=== PATIENT | female | born 1990 | race Caucasian/White ===

== ENCOUNTER 2018-01-17 16:15 | Emergency (ER) | payer SELFPAY ==
[2018-01-17 16:27] VITALS: BP 159/114
[2018-01-17] MEDS ORDERED: THIAMINE 100 MG TABLET PO STA (17:25)
[2018-01-17] MEDS ORDERED: FOLIC ACID 1 MG TABLET PO STA (17:25)
[2018-01-17] MEDS ORDERED: LORazepam 0.5 MG TABLET PO STA (17:25)
--- NOTE | 2018-01-17 17:28 | ED Physician Documentation ---
History of Present Illness - Stated complaint Stated Complaint: ETOH WITHDRAWLS - Chief complaint Chief Complaint: General - History obtained from History obtained from: Patient, Family - History of Present Illness Timing: Today (27-year-old woman with long history of alcohol abuse, usually drinks about 1/5 of vodka a day and 3 beers, she starts drinking about 5 PM and then passes out usually around 10 PM. She is a functional alcoholic and maintains a job despite this. She last drink yesterday would like help quitting alcohol. No current health insurance but signed up today.) Review of Systems Constitutional: denies: Fever, Chills Cardiac: denies: Chest pain / pressure, Palpitations Respiratory: denies: Dyspnea, Cough GI: denies: Abdominal Pain PD PAST MEDICAL HISTORY - Past Surgical History Past Surgical History: No - Present Medications Home Medications: Ambulatory Orders Medication Instructions Recorded Confirmed Lorazepam [Ativan] 1 mg PO TID PRN #15 tablet 01/17/18 - Allergies Allergies/Adverse Reactions: Allergies Allergy/AdvReac Type Severity Reaction Status Date / Time No Known Drug Allergies Allergy Verified 01/17/18 16:27 - Social History Does the pt smoke?: No Smoking Status: Never smoker Does the pt drink ETOH?: Yes Does the pt have substance abuse?: No - Immunizations Immunizations are current?: No - POLST Patient has POLST: No PD ED PE NORMAL - Vitals Vital signs reviewed: Yes - General General: Alert and oriented X 3, No acute distress - HEENT HEENT: PERRL, EOMI - Neck Neck: Supple, no meningeal sign, No bony TTP - Neuro Neuro: Alert and oriented X 3, miller wood flour 2-12 intact Eye Opening: Spontaneous Motor: Obeys Commands Verbal: Oriented GCS Score: 15 - Psych Psych: Normal mood, Normal affect, Other (She is not overtly shaky) Results - Vitals Vitals: Vital Signs - 24 hr 01/17/18 16:23 Temperature 37.1 C Heart Rate 108 H Respiratory 18 Rate Blood Pressure 159/114 H O2 Saturation 98 Oxygen O2 Source Room air PD MEDICAL DECISION MAKING - ED course ED course: 27-year-old woman presents with alcohol withdrawal requesting help with detox. We discussed options including seeing in the emergency department for inpatient detox which she declined and would like to try to as an outpatient. Departure - Departure Disposition: 01 Home, Self Care Clinical Impression: Alcohol withdrawal Qualifiers: Complication of substance-induced condition: uncomplicated Qualified Code(s): F10.230 - Alcohol dependence with withdrawal, uncomplicated Condition: Good Record reviewed to determine appropriate education?: Yes Instructions: ED Withdrawal Alcohol Prescriptions: Lorazepam [Ativan] 1 mg PO TID PRN #15 tablet PRN Reason: Anxiety Comments: Try [facility] tomorrow at [phone] to see what options they have for outpatient detox. Return for new or worsening symptoms. Recheck your blood pressure in 1 week with your doctor.
== END 2018-01-17 17:53 | disposition home or self-care (01) ==
LOC: ED 16:15
DX: F10.230 Alcohol dependence with withdrawal, uncomplicated (principal)
CPT/HCPCS: 99283; A9270

== ENCOUNTER 2018-03-12 12:32 | Emergency (ER) | payer SELFPAY ==
[2018-03-12] MEDS ORDERED: LORazepam 0.5 MG TABLET PO STA (16:26)
--- NOTE | 2018-03-12 16:29 | ED Physician Documentation ---
History of Present Illness - Stated complaint Stated Complaint: ETOH - Chief complaint Chief Complaint: General - History obtained from History obtained from: Patient, Family - History of Present Illness Timing: Yesterday (She is trying to quit drinking and had her last drink yesterday. Today she feels shaky and did not sleep well last night. She denies hallucination or seizure activity. No possibility of or other drug use.) Review of Systems Constitutional: reports: Reviewed and negative Cardiac: reports: Reviewed and negative Respiratory: reports: Reviewed and negative PD PAST MEDICAL HISTORY - Past Medical History Cardiovascular: Hypertension - Past Surgical History Past Surgical History: No - Present Medications Home Medications: Ambulatory Orders Medication Instructions Recorded Confirmed Lorazepam [Ativan] 1 mg PO TID PRN #15 tablet 03/12/18 - Allergies Allergies/Adverse Reactions: Allergies Allergy/AdvReac Type Severity Reaction Status Date / Time No Known Drug Allergies Allergy Verified 03/12/18 12:58 - Social History Does the pt smoke?: No Smoking Status: Never smoker Does the pt drink ETOH?: Yes Does the pt have substance abuse?: No - Immunizations Immunizations are current?: No - POLST Patient has POLST: No PD ED PE NORMAL - Vitals Vital signs reviewed: Yes - General General: Alert and oriented X 3, Well developed/nourished, Other (Slightly tremulous) - HEENT HEENT: PERRL, EOMI - Neck Neck: Supple, no meningeal sign, No bony TTP - Neuro Neuro: Alert and oriented X 3, armature winder 2-12 intact - Psych Psych: Normal mood, Normal affect Results - Vitals Vitals: Vital Signs - 24 hr 03/12/18 12:55 Temperature 37 C Heart Rate 108 H Respiratory 15 Rate Blood Pressure 151/110 H O2 Saturation 100 Oxygen O2 Source Room air PD MEDICAL DECISION MAKING - ED course ED course: 27-year-old woman with uncomplicated alcohol withdrawal. She declines to talk to the psych social worker about inpatient treatment. Departure - Departure Disposition: 01 Home, Self Care Clinical Impression: Alcohol withdrawal Qualifiers: Complication of substance-induced condition: uncomplicated Qualified Code(s): F10.230 - Alcohol dependence with withdrawal, uncomplicated Condition: Good Record reviewed to determine appropriate education?: Yes Instructions: ED Withdrawal Alcohol Prescriptions: Lorazepam [Ativan] 1 mg PO TID PRN #15 tablet PRN Reason: Anxiety Comments: Return anytime if you change your mind about consideration for inpatient detoxification or if other symptoms worsen. Your blood pressure was elevated today on check into the emergency department. This does not mean that you have hypertension, it is a common phenomenon to come to the emergency department and have elevated blood pressure. I recommend that you see your primary care physician within the week to have it rechecked when you are feeling better.
[2018-03-12 16:42] VITALS: BP 155/100
[2018-03-12] MEDS: LORazepam 2 MG/ML VIAL IM STA (16:44)
== END 2018-03-12 16:59 | disposition home or self-care (01) ==
LOC: ED 12:32
DX: F10.230 Alcohol dependence with withdrawal, uncomplicated (principal); I10 Essential (primary) hypertension
CPT/HCPCS: 96372; 99282; 99283; J2060

== ENCOUNTER 2018-04-21 17:14 | Emergency (ER) | payer OTHER ==
[2018-04-21 17:20] VITALS: BP 135/93
--- NOTE | 2018-04-21 18:27 | ED Physician Documentation ---
History of Present Illness - Stated complaint Stated Complaint: FACE SWELLING - Chief complaint Chief Complaint: General - History obtained from History obtained from: Patient, Family - History of Present Illness Timing: Yesterday Pain level max: 3 Pain level now: 3 Improved by: Nothing Worsened by: Nothing - Additonal information Additional information: Rash to forehead, started yesterday and worsening welling. Mild redness. States hurts more than itches. No new soaps, detergents, makeup etc. 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 : None HEENT: None Psych: None Musculoskeletal: None Derm: None - Past Surgical History Past Surgical History: No - Present Medications Home Medications: Ambulatory Orders Medication Instructions Recorded Confirmed Clindamycin HCl [Clindamycin 300MG 300 mg PO Q6H #28 capsule 04/21/18 CAP] predniSONE [Prednisone] 20 mg PO DAILY #4 tablet 04/21/18 - Allergies Allergies/Adverse Reactions: Allergies Allergy/AdvReac Type Severity Reaction Status Date / Time No Known Drug Allergies Allergy Verified 04/21/18 17:20 - Social History Does the pt smoke?: No Smoking Status: Never smoker Does the pt drink ETOH?: No Does the pt have substance abuse?: No - Immunizations Immunizations are current?: No Immunizations: TDAP >10years/unknown - POLST Patient has POLST: No PD ED PE NORMAL - Vitals Vital signs reviewed: Yes - General General: Alert and oriented X 3, No acute distress - HEENT HEENT: Moist mucous membranes, Other (2x2m erythematous, warm patch to the forehead. NVI. no induration. ) - Neck Neck: Supple, no meningeal sign - Cardiac Cardiac: RRR - Respiratory Respiratory: No respiratory distress, Clear bilaterally - Derm Derm: Warm and dry - Neuro Neuro: Alert and oriented X 3 Results - Vitals Vitals: Vital Signs - 24 hr 04/21/18 17:19 Temperature 36.3 C L Heart Rate 118 H Respiratory 18 Rate Blood Pressure 135/93 H O2 Saturation 100 Oxygen O2 Source Room air PD MEDICAL DECISION MAKING - ED course Complexity details: considered differential, d/w patient ED course: 27-year-old female with what appears to be cellulitis of the forehead, possible allergic reaction was well? Will place on a low-dose steroid along with antibiotics. She is well-appearing, nontoxic. No drainable abscess. Patient counseled regarding signs and symptoms for which I believe and urgent re- evaluation would be necessary. Patient with good understanding of and agreement to plan and is comfortable going home at this time This document was made in part using voice recognition software. While efforts are made to proofread this document, sound alike and grammatical errors may occur. Departure - Departure Disposition: 01 Home, Self Care Clinical Impression: Cellulitis and abscess of face Condition: Good Instructions: ED Cellulitis Facial Follow-Up: your,doctor in 3 days for wound check. [Other] Prescriptions: Clindamycin HCl [Clindamycin 300MG CAP] 300 mg PO Q6H #28 capsule predniSONE [Prednisone] 20 mg PO DAILY #4 tablet Comments: Take all antibiotics until gone. Return if you worsen. Follow-up with your doctor for wound check in 3 days. Discharge Date/Time: 04/21/18 18:35
== END 2018-04-21 18:35 | disposition home or self-care (01) ==
LOC: ED 17:14
DX: L03.211 Cellulitis of face (principal); L02.01 Cutaneous abscess of face; I10 Essential (primary) hypertension
CPT/HCPCS: 99283

== ENCOUNTER 2018-05-05 17:30 | Outpatient (CLI) | payer OTHER ==
--- NOTE | 2018-05-06 11:43 | XRAY Report ---
Reason: RIB PAIN,RIGHT SIDED Procedure Date: 05/05/2018 Accession Number: [id number] / [id number] Procedure: XR - Chest 2 View X-Ray CPT Code: 23820 FULL RESULT: EXAM: CHEST RADIOGRAPHY EXAM DATE: 05/05/2018 05:42 PM. CLINICAL HISTORY: RIB PAIN,RIGHT SIDED. COMPARISON: None. TECHNIQUE: 2 views. FINDINGS: Lungs/Pleura: No focal opacities evident. No pleural effusion. No pneumothorax. Normal volumes. Mediastinum: Heart and mediastinal contours are unremarkable. Other: Negative bony structures.. IMPRESSION: Normal 2-view chest radiography. RADIA
== END 2018-05-05 17:31 | disposition home or self-care (01) ==
LOC: DI 17:30
PROVIDERS: ATTEND Registered Nurse
DX: R07.81 Pleurodynia (principal)
CPT/HCPCS: 71046

== ENCOUNTER 2018-07-06 13:11 | Outpatient (CLI) | payer OTHER ==
[2018-07-06 18:02] LABS: BASOPHILS # (AUTO) 0.1 10^3/uL (0.0-0.1); BASOPHILS % (AUTO) 0.7 %; EOSINOPHILS # (AUTO) 0.1 10^3/uL (0.0-0.7); EOSINOPHILS % (AUTO) 1.9 %; HGB - HEMOGLOBIN 13.6 g/dL (12.0-16.0); LYMPHOCYTES # (AUTO) 2.2 10^3/uL (1.5-3.5); LYMPHOCYTES % (AUTO) 28.9 %; MEAN CORPUSCULAR HEMOGLOBIN 33.6 pg (27.0-31.0); MEAN CORPUSCULAR VOLUME 101.6 fL (81.0-99.0); MEAN PLATELET VOLUME 10.4 fL (7.9-10.8); MONOCYTES # (AUTO) 0.7 10^3/uL (0.0-1.0); MONOCYTES % (AUTO) 8.9 %; NEUTROPHILS # (AUTO) 4.6 10^3/uL (1.5-6.6); NEUTROPHILS % (AUTO) 59.6 %; PLT - PLATELET COUNT 238 10^3/uL (130-450); RED BLOOD COUNT 4.06 10^6/uL (4.20-5.40); RED CELL DISTRIBUTION WIDTH 13.4 % (12.0-15.0); WHITE BLOOD COUNT 7.7 x10^3/uL (4.8-10.8)
[2018-07-06 18:32] LABS: ALBUMIN 4.3 g/dL (3.2-5.5); ALBUMIN/GLOBULIN RATIO 1.2 (1.0-2.2); BILIRUBIN,TOTAL 0.5 mg/dL (0.2-1.0); CALCIUM 9.5 mg/dL (8.5-10.3); CREATININE 0.5 mg/dL (0.4-1.0); TOTAL PROTEIN 7.9 g/dL (6.7-8.2)
== END 2018-07-06 13:12 | disposition home or self-care (01) ==
LOC: LAB.F 13:11
PROVIDERS: ATTEND Nurse Practitioner
DX: I10 Essential (primary) hypertension (principal)
CPT/HCPCS: 36415; 80053; 85025

== ENCOUNTER 2018-07-19 14:57 | Outpatient (CLI) | payer OTHER ==
[2018-07-19 18:16] LABS: ABSOLUTE RETICS # AUTO 0.087 10^6/uL (0.020-0.110); RED BLOOD COUNT 3.82 10^6/uL (4.20-5.40)
[2018-07-19 19:07] LABS: FOLATE 21.89 ng/mL (5.90 - >24.8)
== END 2018-07-19 23:59 | disposition home or self-care (01) ==
LOC: LAB.S 14:57
PROVIDERS: ATTEND Nurse Practitioner
DX: D64.9 Anemia, unspecified (principal)
CPT/HCPCS: 36415; 82607; 82746; 85044

== ENCOUNTER 2018-08-31 13:55 | Emergency (ER) | payer OTHER ==
[2018-08-31 14:16] VITALS: BP 152/107
[2018-08-31] MEDS ORDERED: chlordiazePOXIDE 25 MG CAPSULE PO STA (14:54)
[2018-08-31] MEDS ORDERED: GABAPENTIN 100 MG CAPSULE PO STA (14:56)
--- NOTE | 2018-08-31 15:21 | ED Physician Documentation ---
History of Present Illness - Stated complaint Stated Complaint: ETOH - Chief complaint Chief Complaint: MHE - History obtained from History obtained from: Patient, Family - History of Present Illness Timing: Today Severity Comments: Mild tremors, feeling a little anxious, denies pain Radiates to: mild tremors, anxiety Improved by: nothing Worsened by: nothing Associated symptoms: denies hallucinations, delusions, seizures. Denies other drug use. - Treatment prior to arrival Treatment prior to arrival: none - Additonal information Additional information: 28 y/o F with hx of chronic alcohol abuse states she is trying to quit, her last drink was about 10 hours ago. She denies pain. She feels a little shaky Review of Systems Ten Systems: 10 systems reviewed and negative Constitutional: denies: Fever Respiratory: denies: Dyspnea GI: denies: Abdominal Pain, Nausea, Vomiting Neurologic: reports: Other (tremors). denies: Syncope, Seizure, Confused, Altered mental status Psychiatric: reports: Anxiety. 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 : None HEENT: None Psych: None Musculoskeletal: None Derm: None - Past Surgical History Past Surgical History: No - Present Medications Home Medications: Ambulatory Orders Medication Instructions Recorded Confirmed RX: hydroCHLOROthiazide 25 mg PO 08/31/18 [Hydrochlorothiazide] chlordiazePOXIDE [Librium] 50 mg PO Q8HR 7 Days #40 capsule 08/31/18 - Allergies Allergies/Adverse Reactions: Allergies Allergy/AdvReac Type Severity Reaction Status Date / Time No Known Drug Allergies Allergy Verified 08/31/18 14:15 - Social History Does the pt smoke?: No Smoking Status: Never smoker Does the pt drink ETOH?: No Does the pt have substance abuse?: No - Immunizations Immunizations are current?: No Immunizations: TDAP >10years/unknown - POLST Patient has POLST: No PD ED PE NORMAL - Vitals Vital signs reviewed: Yes - General General: Alert and oriented X 3, No acute distress, Well developed/nourished, Other (mildly tremulous) - HEENT HEENT: Atraumatic, PERRL, EOMI - Cardiac Cardiac: No murmur, No gallop, No rub, Other (mild tachycardia, regular rate) - Respiratory Respiratory: No respiratory distress - Abdomen Abdomen: Soft, Non tender, Non distended - Female Female : Deferred - Rectal Rectal: Deferred - Derm Derm: Normal color, Warm and dry, No rash - Extremities Extremities: No deformity, No edema - Neuro Neuro: Alert and oriented X 3 Eye Opening: Spontaneous Motor: Obeys Commands Verbal: Oriented GCS Score: 15 - Psych Psych: Normal mood, Normal affect PD ED PE EXPANDED - Neuro Neuro: Other (mild tremor, no asterixis) Results - Vitals Vitals: Vital Signs - 24 hr 08/31/18 14:13 Temperature 36.8 C Heart Rate 115 H Respiratory 16 Rate Blood Pressure 152/107 H O2 Saturation 99 Oxygen O2 Source Room air PD MEDICAL DECISION MAKING - ED course Complexity details: considered differential, d/w patient, d/w family ED course: Alcohol withdrawal, alcohol abuse, anxiety 28 y/o F with hx of alcohol abuse currently appears to be in mild withdrawal - tremulous but not altered, no seizure activity. Mild tachycardia, pt's CIWA is <10 thus feel pt is stable for outpt management. Will give trial of gabapentin and librium. Pt to f/u with PCP for recheck. Given return precaution if worsening symptoms or seizure activity. Departure - Departure Disposition: 01 Home, Self Care Clinical Impression: Alcohol withdrawal Condition: Stable Record reviewed to determine appropriate education?: Yes Instructions: ED Withdrawal Alcohol Follow-Up: Talita Alvarez DNP [Primary Care Provider] - Within 3 Days Prescriptions: chlordiazePOXIDE [Librium] 50 mg PO Q8HR 7 Days #40 capsule
== END 2018-08-31 15:54 | disposition home or self-care (01) ==
LOC: ED 13:55
DX: F10.230 Alcohol dependence with withdrawal, uncomplicated (principal); F41.9 Anxiety disorder, unspecified; I10 Essential (primary) hypertension
CPT/HCPCS: 99283; 99284; A9270

== ENCOUNTER 2019-02-13 18:43 | Emergency (ER) | payer OTHER ==
[2019-02-13] MEDS ORDERED: chlordiazePOXIDE 25 MG CAPSULE PO STA (19:42)
[2019-02-13] MEDS ORDERED: ONDANSETRON ODT 4 MG TABLET TL STA (19:42)
--- NOTE | 2019-02-13 19:47 | ED Physician Documentation ---
PD HPI ABD PAIN - Stated complaint Stated Complaint: NAUSEA/LUMP ON L BREAST - Chief complaint Chief Complaint: Abd Pain - History obtained from History obtained from: Patient (28-year-old alcoholic presents for multiple areas of bruising and a concern about a breast lump as well as nausea. On a normal day she starts drinking around 7 PM, finishes drinking around midnight. During that time will drink a pint of vodka, few beers and a few smaller bottles of vodka as well. She is noticed for the last few weeks that she has a lot of bruises all over. They look traumatic. She does not recollect any trauma but admits that she could have had trauma when she was blacked out. She denies any pain. Review of previous records show normal renal function, liver function, platelets. She also has a breast lump that slightly painful, left upper outer breast. She feels is unlikely but not impossible. She is nauseous and withdrawing a little bit. 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 HEENT: None Psych: None Musculoskeletal: None Derm: None - Past Surgical History Past Surgical History: No - Present Medications Home Medications: Ambulatory Orders Medication Instructions Recorded Confirmed Gabapentin 400 mg PO TID #30 capsule 08/31/18 chlordiazePOXIDE [Librium] 50 mg PO Q8HR 7 Days #40 capsule 08/31/18 hydroCHLOROthiazide 25 mg PO 08/31/18 [Hydrochlorothiazide] chlordiazePOXIDE [Librium] 1 - 2 tab PO Q8H PRN #15 capsule 02/13/19 - Allergies Allergies/Adverse Reactions: Allergies Allergy/AdvReac Type Severity Reaction Status Date / Time No Known Drug Allergies Allergy Verified 08/31/18 14:15 - Social History Does the pt smoke?: No Smoking Status: Never smoker Does the pt drink ETOH?: No Does the pt have substance abuse?: No - Immunizations Immunizations are current?: No Immunizations: TDAP >10years/unknown - POLST Patient has POLST: No PD ED PE NORMAL - Vitals Vital signs reviewed: Yes - General General: Alert and oriented X 3, No acute distress - HEENT HEENT: PERRL, EOMI - Neck Neck: Supple, no meningeal sign, No bony TTP - Cardiac Cardiac: RRR, No murmur - Respiratory Respiratory: No respiratory distress, Clear bilaterally, Other (Breast exam was done with Sima william nurse, she has a small lump left upper outer breast most consistent with fibroglandular tissue. She was reassured that this is unlikely to be malignant, but advised primary care follow-up.) - Abdomen Abdomen: Non tender - Derm Derm: Other (She is multiple bruises in various states of healing, right flank, both elbows. They are in spots that are kind of typical for trauma) - Extremities Extremities: No edema, No calf tenderness / cord - Neuro Neuro: Alert and oriented X 3, Normal speech Results - Vitals Vitals: Vital Signs - 24 hr 02/13/19 02/13/19 18:49 21:18 Temperature 36.8 C 37 C Heart Rate 84 116 H Respiratory 18 16 Rate Blood Pressure 145/101 H 143/98 H O2 Saturation 100 97 Oxygen O2 Source Room air - Labs Labs: Laboratory Tests 02/13/19 02/13/19 02/13/19 20:03 20:03 20:03 WBC 6.6 RBC 3.92 L Hgb 14.6 Hct 40.0 MCV 102.0 H MCH 37.2 H MCHC 36.5 H RDW 13.3 Plt Count 193 MPV 10.2 Neut # (Auto) 4.1 Lymph # (Auto) 2.1 Kershaw # (Auto) 0.4 Eos # (Auto) 0.0 Baso # (Auto) 0.1 Absolute Nucleated RBC 0.00 Band Neuts % (Manual) Not Reportable Abnorm Lymph % (Manual) Not Reportable Nucleated RBC % 0.0 Neutrophils # (Manual) Not Reportable Lymphocytes # (Manual) Not Reportable Monocytes # (Manual) Not Reportable Eosinophils # (Manual) Not Reportable Basophils # (Manual) Not Reportable Differential Comment MANUAL=AUTO DIFF Manual Slide Review Indicated WBC Morphology NORMAL APPEARANCE Platelet Estimate NORMAL (130-450,000) Platelet Morphology NORMAL APPEARANCE RBC Morph Micro Appear NORMAL APPEARANCE Whole Blood INR Sodium 129 L Potassium 3.1 L Chloride 90 L Carbon Dioxide 28 Anion Gap 11.0 BUN 16 Creatinine 0.5 Estimated GFR (MDRD) 146 Glucose 138 H Calcium 8.0 L Total Bilirubin 0.5 AST 154 H ALT 37 Alkaline Phosphatase 59 Total Protein 6.1 L Albumin 3.4 Globulin 2.7 Albumin/Globulin Ratio 1.3 Lipase 184 H Serum HCG, Qual NEGATIVE 02/13/19 20:15 WBC RBC Hgb Hct MCV MCH MCHC RDW Plt Count MPV Neut # (Auto) Lymph # (Auto) [place]ershaw # (Auto) Eos # (Auto) Baso # (Auto) Absolute Nucleated RBC Band Neuts % (Manual) Abnorm Lymph % (Manual) Nucleated RBC % Neutrophils # (Manual) Lymphocytes # (Manual) Monocytes # (Manual) Eosinophils # (Manual) Basophils # (Manual) Differential Comment Manual Slide Review WBC Morphology Platelet Estimate Platelet Morphology RBC Morph Micro Appear Whole Blood INR 1.0 Sodium Potassium Chloride Carbon Dioxide Anion Gap BUN Creatinine Estimated GFR (MDRD) Glucose Calcium Total Bilirubin AST ALT Alkaline Phosphatase Total Protein Albumin Globulin Albumin/Globulin Ratio Lipase Serum HCG, Qual PD MEDICAL DECISION MAKING - ED course ED course: 28-year-old woman with worry for clotting abnormalities in the setting of history of alcohol abuse. Her clotting factors are normal. She is lipemic and this was discussed with the patient. Also breast lump, also primary care follow-up was advised but seems most consistent with fibroglandular tissue. She has had that before. Departure - Departure Disposition: 01 Home, Self Care Clinical Impression: Alcohol withdrawal Qualifiers: Complication of substance-induced condition: uncomplicated Qualified Code(s): F10.230 - Alcohol dependence with withdrawal, uncomplicated Condition: Good Record reviewed to determine appropriate education?: Yes Instructions: ED Withdrawal Alcohol Prescriptions: chlordiazePOXIDE [Librium] 1 - 2 tab PO Q8H PRN #15 capsule PRN Reason: Alcohol Withdrawal Comments: Your clotting factors are normal. You do have lipemia, this is high fat in the blood. It is not relevant to your current complaints, but she need to follow-up with your primary care physician for this. Return for new worsening symptoms. Avoid alcohol.
[2019-02-13 20:09] LABS: BASOPHILS # (AUTO) 0.1 10^3/uL (0.0-0.1); BASOPHILS % (AUTO) 0.9 %; EOSINOPHILS % (AUTO) 0.3 %; HGB - HEMOGLOBIN 14.6 g/dL (12.0-16.0); LYMPHOCYTES # (AUTO) 2.1 10^3/uL (1.5-3.5); MEAN CORPUSCULAR HEMOGLOBIN 37.2 pg (27.0-31.0); MEAN CORPUSCULAR HGB CONC 36.5 g/dL (32.0-36.0); MEAN PLATELET VOLUME 10.2 fL (7.9-10.8); MONOCYTES # (AUTO) 0.4 10^3/uL (0.0-1.0); MONOCYTES % (AUTO) 6.1 %; NEUTROPHILS # (AUTO) 4.1 10^3/uL (1.5-6.6); NEUTROPHILS % (AUTO) 61.4 %; PLT - PLATELET COUNT 193 10^3/uL (130-450); RED BLOOD COUNT 3.92 10^6/uL (4.20-5.40); RED CELL DISTRIBUTION WIDTH 13.3 % (12.0-15.0); WHITE BLOOD COUNT 6.6 x10^3/uL (4.8-10.8)
[2019-02-13 20:38] LABS: HCG,QUALITATIVE BLOOD NEGATIVE
[2019-02-13 21:02] LABS: PLATELET MORPHOLOGY NORMAL APPEARANCE (NORMAL); RBC MORPHOLOGY (MULTIPLE) NORMAL APPEARANCE (NORMAL)
[2019-02-13 21:03] LABS: DIFFERENTIAL COMMENT MANUAL=AUTO DIFF; PLATELET ESTIMATE, MANUAL NORMAL (130-450,000) (NORMAL)
[2019-02-13 21:08] LABS: ALBUMIN 3.4 g/dL (3.2-5.5); ALBUMIN/GLOBULIN RATIO 1.3 (1.0-2.2); BILIRUBIN,TOTAL 0.5 mg/dL (0.2-1.0); CREATININE 0.5 mg/dL (0.4-1.0); TOTAL PROTEIN 6.1 g/dL (6.7-8.2)
[2019-02-13 21:19] VITALS: BP 143/98
== END 2019-02-13 21:29 | disposition home or self-care (01) ==
LOC: ED 18:43
DX: F10.230 Alcohol dependence with withdrawal, uncomplicated (principal); E78.5 Hyperlipidemia, unspecified; N63.21 Unspecified lump in the left breast, upper outer quadrant; S30.1XXA Contusion of abdominal wall, initial encounter; S50.02XA Contusion of left elbow, initial encounter; S50.01XA Contusion of right elbow, initial encounter; X58.XXXA Exposure to other specified factors, initial encounter; I10 Essential (primary) hypertension
CPT/HCPCS: 36415; 80053; 83690; 84703; 85025; 85610; 99283; 99284; A9270; Q0162

== ENCOUNTER 2019-02-18 09:06 | Outpatient (CLI) | payer OTHER ==
[2019-02-18 17:13] LABS: BASOPHILS % (AUTO) 1.3 %; EOSINOPHILS % (AUTO) 2.6 %; HGB - HEMOGLOBIN 12.4 g/dL (12.0-16.0); MEAN CORPUSCULAR HEMOGLOBIN 36.2 pg (27.0-31.0); MEAN CORPUSCULAR HGB CONC 32.3 g/dL (32.0-36.0); MEAN PLATELET VOLUME 10.7 fL (7.9-10.8); MONOCYTES % (AUTO) 10.4 %; NEUTROPHILS % (AUTO) 54.6 %; PLT - PLATELET COUNT 234 10^3/uL (130-450); RED BLOOD COUNT 3.43 10^6/uL (4.20-5.40); RED CELL DISTRIBUTION WIDTH 14.3 % (12.0-15.0); WHITE BLOOD COUNT 6.2 x10^3/uL (4.8-10.8)
[2019-02-18 17:46] LABS: ABNORMAL LYMPHS % (MANUAL) 4 %; BAND NEUTROPHILS % (MANUAL) 2 %; EOSINOPHILS # (MANUAL) 0.1 10^3/uL (0-0.7); LYMPHOCYTES # (MANUAL) 2.6 10^3/uL (1.5-3.5); LYMPHOCYTES % (MANUAL) 35 %; MONOCYTES # (MANUAL) 0.3 10^3/uL (0.0-1.0)
[2019-02-18 17:54] LABS: DIFFERENTIAL COMMENT MANUAL DIFFERENTIAL; PLATELET ESTIMATE, MANUAL NORMAL (130-450,000) (NORMAL); PLATELET MORPHOLOGY NORMAL APPEARANCE (NORMAL)
[2019-02-18 17:55] LABS: ALBUMIN 3.4 g/dL (3.2-5.5); ALBUMIN/GLOBULIN RATIO 0.8 (1.0-2.2); BILIRUBIN,TOTAL 0.9 mg/dL (0.2-1.0); CALCIUM 9.2 mg/dL (8.5-10.3); CREATININE 0.6 mg/dL (0.4-1.0); TOTAL PROTEIN 7.5 g/dL (6.7-8.2)
== END 2019-02-18 09:07 | disposition home or self-care (01) ==
LOC: LAB.S 09:06
PROVIDERS: ATTEND Physician Assistant Medical
DX: F10.10 Alcohol abuse, uncomplicated (principal); I10 Essential (primary) hypertension; D64.9 Anemia, unspecified
CPT/HCPCS: 36415; 80053; 85025

== ENCOUNTER 2019-05-10 14:27 | Outpatient (CLI) | payer OTHER ==
[2019-05-10 17:44] LABS: ALBUMIN 4.1 g/dL (3.2-5.5); ALBUMIN/GLOBULIN RATIO 1.1 (1.0-2.2); BILIRUBIN,TOTAL 0.5 mg/dL (0.2-1.0); CALCIUM 8.9 mg/dL (8.5-10.3); CREATININE 0.5 mg/dL (0.4-1.0); TOTAL PROTEIN 7.7 g/dL (6.7-8.2)
== END 2019-05-10 14:28 | disposition home or self-care (01) ==
LOC: LAB.S 14:27
PROVIDERS: ATTEND Physician Assistant Medical
DX: E87.6 Hypokalemia (principal); I10 Essential (primary) hypertension
CPT/HCPCS: 36415; 80053

== ENCOUNTER 2020-02-15 09:25 | Emergency (ER) | payer MEDICAID, OTHER ==
[2020-02-15] MEDS ORDERED: FOLIC ACID INJ 1 MG, THIAMINE INJ 100 MG, MAGNESIUM SULFATE 2 GM, MULTIVITAMIN 10 ML in... IV STA ×5 (09:48)
[2020-02-15] MEDS ORDERED: MAG HYDROX/AL HYDROX/SIMETH 30 ML UDC PO STA (09:48)
[2020-02-15] MEDS ORDERED: LIDOCAINE VISCOUS 2% 15 ML UDC MM STA (09:48)
--- NOTE | 2020-02-15 09:51 | ED Physician Documentation ---
PD HPI ABD PAIN - Stated complaint Stated Complaint: N/V ABDOMINAL PX - Chief complaint Chief Complaint: Abd Pain - History obtained from History obtained from: Patient - History of Present Illness Timing - onset: Yesterday Timing - duration: Days (1) Timing - details: Gradual onset, Still present Quality: Sharp, Pain Location: Epigastric Radiation: Chest Improved by: Other (nothing) Worsened by: Eating, Palpation Associated symptoms: Nausea, Vomiting Similar symptoms before: No diagnosis Recently seen: Not recently seen - Additional information Additional information: Previous well 29-year-old alcoholic female has developed epigastric pain beginning yesterday. She has enough pain that she was not able to eat or drink last night and she comes into the emergency department this morning with epigastric pain. She has had pain much less than this and similar to this that has not lasted. She has pain now and it is persistent. She denies any shortness of breath associated with this she has had some nausea she has not had diarrhea or constipation. She notes that there is no other pain in her abdomen other than right in the middle. Review of Systems Constitutional: denies: Fever Eyes: denies: Decreased vision Ears: denies: Ear pain Nose: denies: Congestion Throat: denies: Sore throat Cardiac: denies: Chest pain / pressure, Palpitations Respiratory: denies: Dyspnea, Cough GI: reports: Abdominal Pain, Nausea, Vomiting : denies: Dysuria, Frequency Skin: denies: Rash Musculoskeletal: denies: Neck pain, Back pain, Extremity pain Neurologic: denies: Generalized weakness, Focal weakness, Numbness PD PAST MEDICAL HISTORY - Past Medical History Cardiovascular: Hypertension Respiratory: None Neuro: None Endocrine/Autoimmune: None GI: None 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 : None HEENT: None Psych: None Musculoskeletal: None Derm: None - Past Surgical History Past Surgical History: No - Present Medications Home Medications: Ambulatory Orders Medication Instructions Recorded Confirmed Buspirone HCl 15 mg PO DAILY 02/15/20 02/15/20 Escitalopram Oxalate [Lexapro] 20 mg PO DAILY 02/15/20 02/15/20 Losartan [Cozaar] 50 mg PO DAILY 02/15/20 02/15/20 Sucralfate [Carafate] 1 gm PO ACHS #60 tablet 02/15/20 chlordiazePOXIDE [Librium] 25 mg PO Q6H PRN #20 capsule 02/15/20 - Allergies Allergies/Adverse Reactions: Allergies Allergy/AdvReac Type Severity Reaction Status Date / Time No Known Drug Allergies Allergy Verified 02/15/20 09:33 - Social History Does the pt smoke?: No Smoking Status: Never smoker Does the pt drink ETOH?: No Does the pt have substance abuse?: No - Immunizations Immunizations are current?: No Immunizations: TDAP >10years/unknown - POLST Patient has POLST: No PD ED PE NORMAL - Vitals Vital signs reviewed: Yes (Hypertensive) - General General: Alert and oriented X 3, No acute distress, Well developed/nourished - HEENT HEENT: Atraumatic, PERRL, EOMI - Neck Neck: Supple, no meningeal sign, No bony TTP - Cardiac Cardiac: RRR, No murmur - Respiratory Respiratory: No respiratory distress, Clear bilaterally - Abdomen Abdomen: Normal bowel sounds, Soft, Non distended, No organomegaly, Other (Specific epigastric tenderness to palpation without left or right upper quadrant or left or right lower quadrant pain or tenderness.) - Back Back: No CVA TTP, No spinal TTP - Derm Derm: Normal color, Warm and dry, No rash - Extremities Extremities: No deformity, No edema - Neuro Neuro: Alert and oriented X 3, 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, No motor deficit, No sensory deficit, Normal speech Eye Opening: Spontaneous Motor: Obeys Commands Verbal: Oriented GCS Score: 15 - Psych Psych: Normal mood, Normal affect Results - Vitals Vitals: Vital Signs - 24 hr 02/15/20 02/15/20 02/15/20 09:30 09:57 10:19 Temperature 37 C 37 C Heart Rate 90 73 79 Respiratory 18 16 16 Rate Blood Pressure 149/95 H 146/92 H 134/93 H O2 Saturation 99 99 100 02/15/20 02/15/20 10:32 11:07 Temperature 37 C Heart Rate 84 79 Respiratory 18 16 Rate Blood Pressure 134/93 H 135/90 H O2 Saturation 100 99 Oxygen O2 Source Room air - Labs Labs: Laboratory Tests 02/15/20 02/15/20 02/15/20 09:35 09:53 09:53 WBC 8.2 RBC 4.08 L Hgb 14.0 Hct 40.9 MCV 100.2 H MCH 34.3 H MCHC 34.2 RDW 13.3 Plt Count 198 MPV 10.0 Neut # (Auto) 6.5 Lymph # (Auto) 1.0 L [place] # (Auto) 0.7 Eos # (Auto) 0.0 Baso # (Auto) 0.0 Absolute Nucleated RBC 0.00 Nucleated RBC % 0.0 Sodium 134 L Potassium 2.9 L Chloride 92 L Carbon Dioxide 28 Anion Gap 14.0 H BUN 5 L Creatinine 0.6 Estimated GFR (MDRD) 117 Glucose 163 H Lactic Acid Calcium 9.5 Total Bilirubin 0.9 AST 313 H ALT 212 H Alkaline Phosphatase 48 Total Protein 8.0 Albumin 4.3 Globulin 3.7 Albumin/Globulin Ratio 1.2 Lipase 1656 H Urine Color DARK YELLOW Urine Clarity CLEAR Urine pH 7.0 Ur Specific [place] 1.020 Urine Protein 30 H Urine Glucose (UA) NEGATIVE Urine Ketones 15 H Urine Occult Blood NEGATIVE Urine Nitrite NEGATIVE Urine Bilirubin NEGATIVE Urine Urobilinogen 0.2 (NORMAL) Ur Leukocyte Esterase TRACE H Urine RBC None Seen Urine WBC 4-5 Ur Squamous Epith Cells MOD Squamous H Urine Bacteria Rare Urine Mucus Moderate Strands Ur Microscopic Review INDICATED Urine Culture Comments NOT INDICATED Urine HCG, Qual NEGATIVE Urine Opiates Screen NEGATIVE Ur Oxycodone Screen NEGATIVE Urine Methadone Screen NEGATIVE Ur Propoxyphene Screen NEGATIVE Ur Barbiturates Screen NEGATIVE Ur Tricyclics Screen NEGATIVE Ur Phencyclidine Scrn NEGATIVE Ur Amphetamine Screen NEGATIVE U Methamphetamines Scrn NEGATIVE U Benzodiazepines Scrn NEGATIVE Urine Cocaine Screen NEGATIVE U Cannabinoids Screen NEGATIVE Ethyl Alcohol 7.3 02/15/20 09:53 WBC RBC Hgb Hct MCV MCH MCHC RDW Plt Count MPV Neut # (Auto) Lymph # (Auto) [place] # (Auto) Eos # (Auto) Baso # (Auto) Absolute Nucleated RBC Nucleated RBC % Sodium Potassium Chloride Carbon Dioxide Anion Gap BUN Creatinine Estimated GFR (MDRD) Glucose Lactic Acid 1.8 Calcium Total Bilirubin AST ALT Alkaline Phosphatase Total Protein Albumin Globulin Albumin/Globulin Ratio Lipase Urine Color Urine Clarity Urine pH Ur Specific Ridge Urine Protein Urine Glucose (UA) Urine Ketones Urine Occult Blood Urine Nitrite Urine Bilirubin Urine Urobilinogen Ur Leukocyte Esterase Urine RBC Urine WBC Ur Squamous Epith Cells Urine Bacteria Urine Mucus Ur Microscopic Review Urine Culture Comments Urine HCG, Qual Urine Opiates Screen Ur Oxycodone Screen Urine Methadone Screen Ur Propoxyphene Screen Ur Barbiturates Screen Ur Tricyclics Screen Ur Phencyclidine Scrn Ur Amphetamine Screen U Methamphetamines Scrn U Benzodiazepines Scrn Urine Cocaine Screen U Cannabinoids Screen Ethyl Alcohol PD MEDICAL DECISION MAKING - ED course Complexity details: reviewed old records, reviewed results, re-evaluated patient, considered differential, d/w patient ED course: 29-year-old alcoholic female presents with acute nausea vomiting epigastric pain she has improvement with use of GI cocktail and she is administered Protonix and Carafate. Her lipase is markedly elevated consistent with acute pancreatitis as well as 2 of her liver functions consistent with alcoholic liver disease. She is given a prescription for Librium for withdrawal symptoms as well as a prescription for Carafate and instructions on gastritis versus peptic ulcer and pancreatitis. She is instructed to not eat food for the next 3 days and she is given a note for work for 5 days.We did discuss admission to the hospital for pancreatitis and she appears well enough to attempt outpatient management. Departure - Departure Disposition: 01 Home, Self Care Clinical Impression: Gastritis Qualifiers: Gastritis type: alcoholic Chronicity: acute Gastritis bleeding: without bleeding Qualified Code(s): K29.20 - Alcoholic gastritis without bleeding Pancreatitis Qualifiers: Chronicity: acute Pancreatitis type: alcohol induced Acute pancreatitis complication: unspecified Qualified Code(s): K85.20 - Alcohol induced acute pancreatitis without necrosis or infection Condition: Stable Instructions: ED Pancreatitis, ED PUD Vs Gastritis Follow-Up: [facility] [Provider Group] Prescriptions: Sucralfate [Carafate] 1 gm PO ACHS #60 tablet chlordiazePOXIDE [Librium] 25 mg PO Q6H PRN #20 capsule PRN Reason: withdrawal symptoms Forms: Activity restrictions
[2020-02-15 09:58] LABS: BASOPHILS % (AUTO) 0.4 %; LYMPHOCYTES % (AUTO) 11.6 %; MEAN CORPUSCULAR HEMOGLOBIN 34.3 pg (27.0-31.0); MEAN CORPUSCULAR HGB CONC 34.2 g/dL (32.0-36.0); MEAN CORPUSCULAR VOLUME 100.2 fL (81.0-99.0); MONOCYTES # (AUTO) 0.7 10^3/uL (0.0-1.0); MONOCYTES % (AUTO) 8.7 %; NEUTROPHILS # (AUTO) 6.5 10^3/uL (1.5-6.6); NEUTROPHILS % (AUTO) 78.8 %; PLT - PLATELET COUNT 198 10^3/uL (130-450); RED BLOOD COUNT 4.08 10^6/uL (4.20-5.40); RED CELL DISTRIBUTION WIDTH 13.3 % (12.0-15.0); WHITE BLOOD COUNT 8.2 x10^3/uL (4.8-10.8)
[2020-02-15 09:59] LABS: MUDS CUTOFF CONCENTRATIONS CUTOFF CONC BELOW:
[2020-02-15 10:05] LABS: GLUCOSE, URINE (UA) NEGATIVE (NEGATIVE); KETONES,URINE (UA) 15 mg/dL (NEGATIVE); LEUKOCYTE ESTERASE, URINE TRACE (NEGATIVE); NITRITE,URINE NEGATIVE (NEGATIVE); OCCULT BLOOD,URINE NEGATIVE (NEGATIVE); PROTEIN,URINE 30 mg/dL (NEGATIVE); UROBILINOGEN,URINE 0.2 (NORMAL) E.U./dL (NORMAL)
[2020-02-15] MEDS ORDERED: PANTOPRAZOLE 40 MG VIAL IVP STA (10:08)
[2020-02-15] MEDS ORDERED: SUCRALFATE 1 GM/10 ML UDC PO STA (10:08)
[2020-02-15 10:10] LABS: CLARITY,URINE CLEAR (CLEAR)
[2020-02-15 10:11] LABS: HCG UR QUAL NEGATIVE
[2020-02-15 10:14] LABS: BILIRUBIN,URINE NEGATIVE (NEGATIVE); ICTOTEST,URINE NEGATIVE
[2020-02-15 10:18] LABS: AMPHETAMINE SCREEN,URINE NEGATIVE (NEGATIVE); BACTERIA,URINE Rare /HPF (None Seen); BENZODIAZEPINES SCREEN, URINE NEGATIVE (NEGATIVE); COCAINE SCREEN URINE NEGATIVE (NEGATIVE); METHADONE SCREEN, URINE NEGATIVE (NEGATIVE); METHAMPHETAMINES SCREEN, URINE NEGATIVE (NEGATIVE); MUCUS,URINE Moderate Strands; OPIATE SCREEN, URINE NEGATIVE (NEGATIVE); OXYCODONE SCREEN, URINE NEGATIVE (NEGATIVE); PROPOXYPHENE SCREEN, URINE NEGATIVE (NEGATIVE); RBC,URINE None Seen /HPF (0-5); SQUAMOUS EPITHELIAL CELL,UR MOD Squamous (<= Few); TRICYCLIC ANTIDEPRESSANT,URINE NEGATIVE (NEGATIVE)
[2020-02-15 10:42] LABS: ALBUMIN 4.3 g/dL (3.2-5.5); ALBUMIN/GLOBULIN RATIO 1.2 (1.0-2.2); BILIRUBIN,TOTAL 0.9 mg/dL (0.2-1.0); CALCIUM 9.5 mg/dL (8.5-10.3); CREATININE 0.6 mg/dL (0.4-1.0)
[2020-02-15] MEDS ORDERED: POTASSIUM CHLORIDE 20 MEQ TABLET PO STA (11:34)
[2020-02-15 11:40] VITALS: BP 141/92
== END 2020-02-15 11:47 | disposition home or self-care (01) ==
LOC: ED 09:25
DX: K29.20 Alcoholic gastritis without bleeding (principal); K85.20 Alcohol induced acute pancreatitis without necrosis or infection; K70.9 Alcoholic liver disease, unspecified; F10.20 Alcohol dependence, uncomplicated; I10 Essential (primary) hypertension
CPT/HCPCS: 36415; 80053; 80306; 80320; 81001; 81025; 83605; 83690; 85025; 96365; 96375; 99284; A9270; J3411; 81003; 87086

== ENCOUNTER 2020-10-03 16:27 | Outpatient (CLI) | payer MEDICAID ==
[2020-10-03 20:06] LABS: BASOPHILS # (AUTO) 0.3 10^3/uL (0.0-0.1); BASOPHILS % (AUTO) 1.5 %; EOSINOPHILS # (AUTO) 0.6 10^3/uL (0.0-0.7); EOSINOPHILS % (AUTO) 3.4 %; HCT - HEMATOCRIT 33.5 % (37.0-47.0); HGB - HEMOGLOBIN 10.5 g/dL (12.0-16.0); LYMPHOCYTES # (AUTO) 2.2 10^3/uL (1.5-3.5); MEAN CORPUSCULAR HEMOGLOBIN 37.5 pg (27.0-31.0); MEAN CORPUSCULAR HGB CONC 31.3 g/dL (32.0-36.0); MEAN CORPUSCULAR VOLUME 119.6 fL (81.0-99.0); MEAN PLATELET VOLUME 11.5 fL (7.9-10.8); MONOCYTES # (AUTO) 1.3 10^3/uL (0.0-1.0); MONOCYTES % (AUTO) 7.6 %; NEUTROPHILS # (AUTO) 12.3 10^3/uL (1.5-6.6); NEUTROPHILS % (AUTO) 72.8 %; PLT - PLATELET COUNT 433 10^3/uL (130-450); RED CELL DISTRIBUTION WIDTH 15.5 % (12.0-15.0); WHITE BLOOD COUNT 16.9 x10^3/uL (4.8-10.8)
[2020-10-03 20:12] LABS: SLIDE REVIEW? Indicated
[2020-10-03 20:13] LABS: PARTIAL THROMBOPLASTIN TIME 30.9 secs (24.9-33.3)
[2020-10-03 20:17] LABS: ALBUMIN 4.2 g/dL (3.2-5.5); ALBUMIN/GLOBULIN RATIO 0.6 (1.0-2.2); BILIRUBIN,TOTAL 2.2 mg/dL (0.2-1.0); CALCIUM 9.9 mg/dL (8.5-10.3); CREATININE 0.9 mg/dL (0.4-1.0); POTASSIUM 4.5 mmol/L (3.5-5.0); TOTAL PROTEIN 11.2 g/dL (6.7-8.2)
[2020-10-03 20:33] LABS: INR 1.5 (0.8-1.2); PT - PROTHROMBIN TIME 16.4 secs (9.9-12.6)
[2020-10-03 20:36] LABS: PLATELET ESTIMATE, MANUAL NORMAL (130-450,000) (NORMAL); PLATELET MORPHOLOGY NORMAL APPEARANCE (NORMAL)
[2020-10-03 20:37] LABS: WBC MORPHOLOGY (MULTIPLE) NORMAL APPEARANCE (NORMAL)
== END 2020-10-03 16:28 | disposition home or self-care (01) ==
LOC: LAB.S 16:27
PROVIDERS: ATTEND Internal Medicine
DX: K70.30 Alcoholic cirrhosis of liver without ascites (principal)
CPT/HCPCS: 36415; 80053; 85025; 85610; 85730

== ENCOUNTER 2020-10-19 09:53 | Outpatient (CLI) | payer MEDICAID ==
[2020-10-19 14:52] LABS: ALBUMIN 4.4 g/dL (3.2-5.5); ALBUMIN/GLOBULIN RATIO 0.7 (1.0-2.2); BILIRUBIN,TOTAL 1.5 mg/dL (0.2-1.0); CALCIUM 11.1 mg/dL (8.5-10.3); CREATININE 1.5 mg/dL (0.4-1.0); POTASSIUM 5.4 mmol/L (3.5-5.0); TOTAL PROTEIN 10.6 g/dL (6.7-8.2)
== END 2020-10-19 09:54 | disposition home or self-care (01) ==
LOC: LAB.S 09:53
PROVIDERS: ATTEND Internal Medicine
DX: K70.30 Alcoholic cirrhosis of liver without ascites (principal)
CPT/HCPCS: 36415; 80053

== ENCOUNTER 2021-12-20 15:27 | Emergency (ER) | payer MEDICAID ==
[2021-12-20 16:04] LABS: MUDS CUTOFF CONCENTRATIONS CUTOFF CONC BELOW:
[2021-12-20 16:05] LABS: BASOPHILS # (AUTO) 0.1 10^3/uL (0.0-0.1); BASOPHILS % (AUTO) 1.1 %; EOSINOPHILS # (AUTO) 0.1 10^3/uL (0.0-0.7); EOSINOPHILS % (AUTO) 0.8 %; HCT - HEMATOCRIT 31.2 % (37.0-47.0); LYMPHOCYTES # (AUTO) 1.1 10^3/uL (1.5-3.5); MEAN CORPUSCULAR HGB CONC 32.1 g/dL (32.0-36.0); MEAN PLATELET VOLUME 10.9 fL (7.9-10.8); MONOCYTES # (AUTO) 0.8 10^3/uL (0.0-1.0); MONOCYTES % (AUTO) 9.7 %; NEUTROPHILS # (AUTO) 5.7 10^3/uL (1.5-6.6); PLT - PLATELET COUNT 82 10^3/uL (130-450); RED BLOOD COUNT 3.03 10^6/uL (4.20-5.40); RED CELL DISTRIBUTION WIDTH 17.5 % (12.0-15.0); WHITE BLOOD COUNT 7.8 x10^3/uL (4.8-10.8)
[2021-12-20 16:17] LABS: GLUCOSE, URINE (UA) >=1000 mg/dL (NEGATIVE); KETONES,URINE (UA) TRACE mg/dL (NEGATIVE); LEUKOCYTE ESTERASE, URINE SMALL (NEGATIVE); NITRITE,URINE NEGATIVE (NEGATIVE); OCCULT BLOOD,URINE SMALL (NEGATIVE); PROTEIN,URINE 100 mg/dL (NEGATIVE); UROBILINOGEN,URINE >=8.0 E.U./dL (NORMAL)
[2021-12-20 16:20] LABS: ACETAMINOPHEN < 10 ug/mL (10-30); ALBUMIN 3.7 g/dL (3.2-5.5); ALBUMIN/GLOBULIN RATIO 0.6 (1.0-2.2); ALKALINE PHOSPHATASE 89 IU/L (42-121); ALT ALANINE AMINOTRANSFERASE 42 IU/L (10-60); AST ASPARTATE AMINOTRANSFERASE 166 IU/L (10-42); BILIRUBIN,TOTAL 3.5 mg/dL (0.2-1.0); BUN - BLOOD UREA NITROGEN 6 mg/dL (6-20); CALCIUM 8.7 mg/dL (8.5-10.3); CARBON DIOXIDE - CO2 28 mmol/L (21-32); CHLORIDE 97 mmol/L (101-111); CREATININE 0.4 mg/dL (0.4-1.0); ETOH - ETHANOL 131.8 mg/dL; GFR - MDRD 185 (>89); GLUCOSE 287 mg/dL (70-100); LIPASE 94 U/L (22-51); POTASSIUM 3.3 mmol/L (3.5-5.0); SALICYLATE < 6.0 mg/dL; SODIUM 137 mmol/L (135-145); TOTAL PROTEIN 9.7 g/dL (6.7-8.2)
[2021-12-20 16:25] LABS: BILIRUBIN,URINE NEGATIVE (NEGATIVE); CLARITY,URINE HAZY (CLEAR); HCG UR QUAL NEGATIVE; ICTOTEST,URINE NEGATIVE
[2021-12-20 16:37] LABS: AMPHETAMINE SCREEN,URINE NEGATIVE (NEGATIVE); BARBITURATE SCREEN,UR NEGATIVE (NEGATIVE); BENZODIAZEPINES SCREEN, URINE NEGATIVE (NEGATIVE); COCAINE SCREEN URINE NEGATIVE (NEGATIVE); METHADONE SCREEN, URINE NEGATIVE (NEGATIVE); METHAMPHETAMINES SCREEN, URINE NEGATIVE (NEGATIVE); OPIATE SCREEN, URINE NEGATIVE (NEGATIVE); OXYCODONE SCREEN, URINE NEGATIVE (NEGATIVE); PROPOXYPHENE SCREEN, URINE NEGATIVE (NEGATIVE); THC CANNABINOID SCREEN, URINE NEGATIVE (NEGATIVE); TRICYCLIC ANTIDEPRESSANT,URINE NEGATIVE (NEGATIVE)
[2021-12-20 16:47] LABS: BACTERIA,URINE Moderate /HPF (None Seen); MUCUS,URINE Moderate Strands; SQUAMOUS EPITHELIAL CELL,UR MANY Squamous (<= Few)
[2021-12-20] MEDS ORDERED: chlordiazePOXIDE 25 MG CAPSULE PO STA (17:52)
[2021-12-20] MEDS ORDERED: POTASSIUM CHLORIDE 20 MEQ TABLET PO STA (18:10)
--- NOTE | 2021-12-20 18:14 | ED Physician Documentation ---
History of Present Illness - Stated complaint Stated Complaint: DETOXING - Chief complaint Chief Complaint: General - History obtained from History obtained from: Patient - Additonal information Additional information: Patient is a 31-year-old female with a history of alcohol abuse presenting for help with detox. She does not want inpatient detox and just would like medications to help her detox at home. She has been drinking 2 bottles of wine daily for some time. She reports her last drink was at 1 AM. She denies previous seizures but reports has had DTs in the past. She denies nausea or vom iting. She denies fever, chest pain or difficulty breathing. She has noticed recently some scleral icterus. She does not currently have a primary care doctor.Her mother has accompanied her to the emergency department. 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 : None HEENT: None Psych: None Musculoskeletal: None Derm: None - Past Surgical History Past Surgical History: No Derm: Other - Present Medications Home Medications: Ambulatory Orders Medication Instructions Recorded Confirmed Buspirone HCl 15 mg PO DAILY 02/15/20 08/18/20 Losartan [Cozaar] 50 mg PO DAILY 02/15/20 08/18/20 Sucralfate [Carafate] 1 gm PO ACHS #60 tablet 02/15/20 08/18/20 Ondansetron Odt [Zofran] 4 mg TL Q6H PRN #10 tablet 12/20/21 chlordiazePOXIDE [Librium] 25 mg PO Q6H PRN #12 cap 12/20/21 - Allergies Allergies/Adverse Reactions: Allergies Allergy/AdvReac Type Severity Reaction Status Date / Time morphine Allergy Respiratory Verified 12/20/21 15:45 - Social History Does the pt smoke?: No Smoking Status: Never smoker Does the pt drink ETOH?: No Does the pt have substance abuse?: No - Immunizations Immunizations are current?: No Immunizations: TDAP >10years/unknown - POLST Patient has POLST: No POLST Status: Full Code PD ED PE NORMAL - General General: Alert and oriented X 3, No acute distress, Well developed/nourished - HEENT HEENT: Atraumatic, Moist mucous membranes, Pharynx benign, Other (Mild scleral icterus) - Neck Neck: Supple, no meningeal sign - Cardiac Cardiac: Strong equal pulses, Other (Tachycardic, regular rhythm) - Respiratory Respiratory: No respiratory distress, Clear bilaterally - Abdomen Abdomen: Normal bowel sounds, Soft, Non tender, Other - Derm Derm: Warm and dry - Extremities Extremities: No calf tenderness / cord, Other (Mild tremor but no asterixis) - Neuro Neuro: Alert and oriented X 3, No motor deficit, Normal speech Results - Vitals Vitals: Vital Signs - 24 hr 12/20/21 12/20/21 12/20/21 15:39 15:44 17:44 Temperature 37.2 C Heart Rate 115 H 116 H 107 H Respiratory 18 Rate Blood Pressure 155/80 H 132/72 H 128/57 L O2 Saturation 100 98 97 12/20/21 12/20/21 19:00 19:13 Temperature 37.2 C Heart Rate 107 H Respiratory 18 Rate Blood Pressure 129/80 129/80 O2 Saturation 97 Oxygen O2 Source Room air - Labs Labs: Laboratory Tests 12/20/21 12/20/21 12/20/21 15:54 15:55 15:55 WBC 7.8 RBC 3.03 L Hgb 10.0 L Hct 31.2 L MCV 103.0 H MCH 33.0 H MCHC 32.1 RDW 17.5 H Plt Count 82 L MPV 10.9 H Neut # (Auto) 5.7 Lymph # (Auto) 1.1 L [place] # (Auto) 0.8 Eos # (Auto) 0.1 Baso # (Auto) 0.1 Absolute Nucleated RBC 0.00 Nucleated RBC % 0.0 PT INR (Fingerstick) INR Sodium 137 Potassium 3.3 L Chloride 97 L Carbon Dioxide 28 Anion Gap 12.0 BUN 6 Creatinine 0.4 Estimated GFR (MDRD) 185 Glucose 287 H Calcium 8.7 Total Bilirubin 3.5 H AST 166 H ALT 42 Alkaline Phosphatase 89 Total Protein 9.7 H Albumin 3.7 Globulin 6.0 H Albumin/Globulin Ratio 0.6 L Lipase 94 H Urine Color YELLOW Urine Clarity HAZY Urine pH 6.0 Ur Specific [place] 1.025 Urine Protein 100 H Urine Glucose (UA) >=1000 H Urine Ketones TRACE Urine Occult Blood SMALL H Urine Nitrite NEGATIVE Urine Bilirubin NEGATIVE Urine Urobilinogen >=8.0 H Ur Leukocyte Esterase SMALL H Urine RBC 11-25 H Urine WBC 6-10 H Ur Squamous Epith Cells MANY Squamous H Urine Bacteria Moderate H Urine Mucus Moderate Strands Ur Microscopic Review INDICATED Urine Culture Comments NOT INDICATED Urine HCG, Qual NEGATIVE Salicylates < 6.0 Urine Opiates Screen NEGATIVE Ur Oxycodone Screen NEGATIVE Urine Methadone Screen NEGATIVE Ur Propoxyphene Screen NEGATIVE Acetaminophen < 10 L Ur Barbiturates Screen NEGATIVE Ur Tricyclics Screen NEGATIVE Ur Phencyclidine Scrn NEGATIVE Ur Amphetamine Screen NEGATIVE U Methamphetamines Scrn NEGATIVE U Benzodiazepines Scrn NEGATIVE Urine Cocaine Screen NEGATIVE U Cannabinoids Screen NEGATIVE Ethyl Alcohol 131.8 12/20/21 12/20/21 17:42 18:05 WBC RBC Hgb Hct MCV MCH MCHC RDW Plt Count MPV Neut # (Auto) Lymph # (Auto) [place] # (Auto) Eos # (Auto) Baso # (Auto) Absolute Nucleated RBC Nucleated RBC % PT 18.6 H INR (Fingerstick) 1.5 H INR 1.7 H Sodium Potassium Chloride Carbon Dioxide Anion Gap BUN Creatinine Estimated GFR (MDRD) Glucose Calcium Total Bilirubin AST ALT Alkaline Phosphatase Total Protein Albumin Globulin Albumin/Globulin Ratio Lipase Urine Color Urine Clarity Urine pH Ur Specific [place] Urine Protein Urine Glucose (UA) Urine Ketones Urine Occult Blood Urine Nitrite Urine Bilirubin Urine Urobilinogen Ur Leukocyte Esterase Urine RBC Urine WBC Ur Squamous Epith Cells Urine Bacteria Urine Mucus Ur Microscopic Review Urine Culture Comments Urine HCG, Qual Salicylates Urine Opiates Screen Ur Oxycodone Screen Urine Methadone Screen Ur Propoxyphene Screen Acetaminophen Ur Barbiturates Screen Ur Tricyclics Screen Ur Phencyclidine Scrn Ur Amphetamine Screen U Methamphetamines Scrn U Benzodiazepines Scrn Urine Cocaine Screen U Cannabinoids Screen Ethyl Alcohol PD MEDICAL DECISION MAKING - ED course Complexity details: reviewed results, re-evaluated patient, d/w patient ED course: Patient presenting for evaluation of alcohol abuse with interested in detox. Patient does have mild scleral icterus and labs were obtained. Patient noted to have elevated bilirubin and LFTs which is similar to previous history. Bilirubin is not as high today as it has been in the past. She does not have signs of encephalopathy.Patient's Malldrey score is less than 32 (Reviewed with hospitalist, Dr. Alanis) - Patient does not qualify for steroids at this time. I did discuss options for detox including inpatient at [facility] The patient does not want to go anywhere. She would like to try to manage her symptoms at home. She was given a dose of Librium here and reported feeling better. Patient CIWA score is 9. She does appear appropriate for outpatient management. Her mother is with her and I counseled them that Librium should not be used if patient continues to drink as it may cause oversedation. Mother ensures that she will only give patient Librium when she needs it and if she is not drinking. I also counseled patient regarding her liver disease which is likely alcoholic hepatitis. She understands at this time that she needs a primary care doctor for close follow-up. She understands that continuing to abuse alcohol may lead to worsening of her liver disease resulting in liver failure Which may then not be reversible.She has no abdominal tenderness on exam. No signs of SBP. Patient and mother counseled on concerning symptoms to return for. Departure - Departure Disposition: 01 Home, Self Care Clinical Impression: Alcohol withdrawal, Alcoholic hepatitis Condition: Stable Instructions: ED Withdrawal Alcohol, ED Cirrhosis Liver Follow-Up: Alyce Callaway ARNP [Credentialed Staff Provider] - Prescriptions: chlordiazePOXIDE [Librium] 25 mg PO Q6H PRN #12 cap PRN Reason: Alcohol Withdrawal Ondansetron Odt [Zofran] 4 mg TL Q6H PRN #10 tablet PRN Reason: Nausea / Vomiting Comments: You were evaluated after wanting to detox from alcohol. I did offer meeting with our social media project manager to talk about inpatient treatments but you would prefer to try to detox as an outpatient. I have sent a prescription for medication to help you detox from alcohol called Mary to [facility] in [place]. Please do not use this medication with alcohol as it may overly sedate you. I have also sent nausea medication. I have also listed the name of her primary care doctor and recommend close follow-up to recheck your liver. Your liver continues to show signs of damage from heavy alcohol abuse. At this time you do not need steroids but if things worsen you may need that in the future.If you have any worsening symptoms please consider return to the emergency department. [facility] [address] [place] [address] Main [facility] offers a monitored and safe setting for individuals withdrawing from alcohol and drugs, and counseling for individuals experiencing a mental health crisis. All services are provided in a 10-bed facility where intensive medical monitoring is required along with stabilization services. The goal of these services is to assess a clients mental health and substance use disorder related needs, and assist them in accessing the services they need to recover. Discharge Date/Time: 12/20/21 19:13
[2021-12-20 18:15] LABS: INR 1.7 (0.8-1.2); PT - PROTHROMBIN TIME 18.6 secs (9.9-12.6)
[2021-12-20 19:13] VITALS: BP 129/80
== END 2021-12-20 19:13 | disposition home or self-care (01) ==
LOC: ED 15:27
DX: F10.239 Alcohol dependence with withdrawal, unspecified (principal); K70.10 Alcoholic hepatitis without ascites; Y90.6 Blood alcohol level of 120-199 mg/100 ml
CPT/HCPCS: 36415; 80053; 80306; 80307; 80320; 80329; 81001; 81025; 83690; 85025; 85610; 99283; A9270; 81003; 87086

== ENCOUNTER 2022-07-02 12:32 | Inpatient (IN) | payer MEDICAID ==
[2022-07-02] MEDS ORDERED: SODIUM CHLORIDE 0.9% 1,000 ML IV STA (12:59)
[2022-07-02] MEDS ORDERED: ONDANSETRON 4 MG/2 ML VIAL IVP STA (12:59)
[2022-07-02] MEDS ORDERED: LORazepam 2 MG/ML VIAL IVP STA (13:01)
--- NOTE | 2022-07-02 13:25 | ED Physician Documentation ---
History of Present Illness - Stated complaint Stated Complaint: ALCOHOL WITHDRAWAL - Chief complaint Chief Complaint: General - History obtained from History obtained from: Patient, Family - Additonal information Additional information: Patient is a 31-year-old female with a history of alcohol abuse presenting for evaluation of alcohol withdrawal. She states her last drink was around 5 PM. She drinks 2 bottles of wine and "buzz balls" daily.She reports wanting to stop drinking. She is here with her mother. She reached out to [facility] in January or February timeframe for help with her substance abuse but has not heard back. She has not been to any detox or rehab programs in the past year.She denies a history of alcohol withdrawal seizures. She does have a large contusion to her back which was noticed when she was getting into a gown. Patient does not recall falling. Mother who is at the bedside states that she fell yesterday and hit her back against a metal cabinet.Mother denies that the patient had hit her head or blacked out. Patient does not take a blood thinner.Patient denies concerns for . She denies other drug use. Review of Systems Constitutional: denies: Fever Cardiac: denies: Chest pain / pressure Respiratory: denies: Dyspnea GI: denies: Abdominal Pain, Vomiting : denies: Dysuria Neurologic: reports: Generalized weakness. 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 - Social History Does the pt smoke?: No Smoking Status: Never smoker Does the pt drink ETOH?: No Does the pt have substance abuse?: No - Immunizations Immunizations are current?: No Immunizations: TDAP >10years/unknown - POLST Patient has POLST: No POLST Status: Full Code PD ED PE NORMAL - General General: Alert and oriented X 3, No acute distress, Well developed/nourished, Other (Tremulous, no asterixis) - HEENT HEENT: Atraumatic - Neck Neck: Supple, no meningeal sign - Cardiac Cardiac: Other (Tachycardic, regular rhythm) - Respiratory Respiratory: No respiratory distress, Clear bilaterally - Abdomen Abdomen: Soft, Non tender - Back Back: Other (Bruising to left upper back) - Derm Derm: Warm and dry - Extremities Extremities: No deformity - Neuro Neuro: Alert and oriented X 3, No motor deficit, Normal speech Results - Vitals Vitals: Vital Signs - 24 hr 07/02/22 07/02/22 07/02/22 12:43 12:49 13:23 Temperature 37.7 C Heart Rate 129 H 128 H Respiratory 18 16 24 Rate Blood Pressure 123/80 O2 Saturation 97 94 Oxygen O2 Source Room air - EKG (time done) 1315 EKG releavant findings:: EKG personally interpreted by author of this note. Relevant findings are: Rate 124, sinus tachycardia, QTc 509, no STEMI Rate: Rate (enter#) (124) Rhythm: Sinus tachycardia Intervals: Prolonged QT Ischemia: No: ST elevation c/w ischemia Compare to prior EKG: Old EKG unavailable - Labs Labs: Laboratory Tests 07/02/22 07/02/22 07/02/22 13:18 13:18 13:18 WBC 9.0 RBC 3.33 L Hgb 11.3 L Hct 33.6 L MCV 100.9 H MCH 33.9 H MCHC 33.6 RDW 15.9 H Plt Count 38 L MPV 12.2 H Neut # (Auto) 7.5 H Lymph # (Auto) 0.4 L [place] # (Auto) 0.8 Eos # (Auto) 0.1 Baso # (Auto) 0.0 Absolute Nucleated RBC 0.00 Nucleated RBC % 0.0 Manual Slide Review Indicated RBC Morph Micro Appear 3+ ANISOCYTOSIS PT 19.9 H INR 1.8 H Sodium 130 L Potassium 2.8 L Chloride 94 L Carbon Dioxide 25 Anion Gap 11.0 BUN 13 Creatinine 0.5 Estimated GFR (MDRD) 143 Glucose 219 H Calcium 8.4 L Magnesium Total Bilirubin 4.9 H AST 87 H ALT 25 Alkaline Phosphatase 71 Total Protein 8.8 H Albumin 3.1 L Globulin 5.7 H Albumin/Globulin Ratio 0.5 L Lipase 38 Ethyl Alcohol < 5.0 04/12/23 13:18 WBC RBC Hgb Hct MCV MCH MCHC RDW Plt Count MPV Neut # (Auto) Lymph # (Auto) [place] # (Auto) Eos # (Auto) Baso # (Auto) Absolute Nucleated RBC Nucleated RBC % Manual Slide Review RBC Morph Micro Appear PT INR Sodium Potassium Chloride Carbon Dioxide Anion Gap BUN Creatinine Estimated GFR (MDRD) Glucose Calcium Magnesium 1.3 L Total Bilirubin AST ALT Alkaline Phosphatase Total Protein Albumin Globulin Albumin/Globulin Ratio Lipase Ethyl Alcohol PD Medical Decision Making - ED course Complexity details: reviewed results, re-evaluated patient, d/w patient ED course: Patient is a 31-year-old female presenting for evaluation of alcohol withdrawal.She has a long history of alcohol abuse and has known alcoholic hepatitis. She is tachycardic. She reports feeling generally weak and having trouble ambulating today. She did fall yesterday. She has no focal deficits noted on her exam. She has no signs of a head injury on exam.She does have a large contusion to her left upper thoracic back. Labs were reviewed with multiple abnormalities noted primarily on her chemistries. She does have some baseline anemia. On chemistries her sodium is 130, potassium 2.8, bilirubin 4.9. INR is elevated at 1.8. Maddrey score is > 32. Her abdominal exam does not suggest SBP. Chest x-ray was reviewed by me and there is a consolidation in the right upper lobe. This does not match with the area of bruising noted on the patient. However she does not have symptoms to suggest pneumonia such as reported fever, cough or even elevated WBC. She appears to be in withdrawal with initial CIWA of 4. Responding to IV ativan. Tolerated PO K replacement. Presented the case to the hospitalist to agrees to accept the patient for admission for treatment of alcoholic hepatitis. Departure - Departure Disposition: [facility] DC/Xfer Clinical Impression: Alcoholic hepatitis Alcohol withdrawal Qualifiers: Complication of substance-induced condition: uncomplicated Qualified Code(s): F10.930 - Alcohol use, unspecified with withdrawal, uncomplicated Contusion of back wall of thorax Qualifiers: Encounter type: initial encounter Thoracic wall location detail: left Qualified Code(s): S20.222A - Contusion of left back wall of thorax, initial encounter Condition: Fair Discharge Date/Time: 07/02/22 15:05
[2022-07-02 13:26] LABS: BASOPHILS % (AUTO) 0.2 %; EOSINOPHILS # (AUTO) 0.1 10^3/uL (0.0-0.7); HCT - HEMATOCRIT 33.6 % (37.0-47.0); HGB - HEMOGLOBIN 11.3 g/dL (12.0-16.0); LYMPHOCYTES # (AUTO) 0.4 10^3/uL (1.5-3.5); LYMPHOCYTES % (AUTO) 4.8 %; MEAN CORPUSCULAR HEMOGLOBIN 33.9 pg (27.0-31.0); MEAN CORPUSCULAR HGB CONC 33.6 g/dL (32.0-36.0); MEAN CORPUSCULAR VOLUME 100.9 fL (81.0-99.0); MEAN PLATELET VOLUME 12.2 fL (7.9-10.8); MONOCYTES # (AUTO) 0.8 10^3/uL (0.0-1.0); MONOCYTES % (AUTO) 9.2 %; NEUTROPHILS # (AUTO) 7.5 10^3/uL (1.5-6.6); NEUTROPHILS % (AUTO) 83.9 %; PLT - PLATELET COUNT 38 10^3/uL (130-450); RED BLOOD COUNT 3.33 10^6/uL (4.20-5.40); RED CELL DISTRIBUTION WIDTH 15.9 % (12.0-15.0)
[2022-07-02 13:32] LABS: INR 1.8 (0.8-1.2); PT - PROTHROMBIN TIME 19.9 secs (9.9-12.6)
[2022-07-02 13:33] LABS: SLIDE REVIEW? Indicated
[2022-07-02 13:37] LABS: ETOH - ETHANOL < 5.0 mg/dL
[2022-07-02 13:43] LABS: ALBUMIN 3.1 g/dL (3.2-5.5); ALBUMIN/GLOBULIN RATIO 0.5 (1.0-2.2); ALKALINE PHOSPHATASE 71 IU/L (42-121); ALT ALANINE AMINOTRANSFERASE 25 IU/L (10-60); AST ASPARTATE AMINOTRANSFERASE 87 IU/L (10-42); BILIRUBIN,TOTAL 4.9 mg/dL (0.2-1.0); BUN - BLOOD UREA NITROGEN 13 mg/dL (6-20); CALCIUM 8.4 mg/dL (8.5-10.3); CARBON DIOXIDE - CO2 25 mmol/L (21-32); CHLORIDE 94 mmol/L (101-111); CREATININE 0.5 mg/dL (0.4-1.0); GFR - MDRD 143 (>89); GLUCOSE 219 mg/dL (70-100); LIPASE 38 U/L (22-51); POTASSIUM 2.8 mmol/L (3.5-5.0); SODIUM 130 mmol/L (135-145); TOTAL PROTEIN 8.8 g/dL (6.7-8.2)
[2022-07-02] MEDS ORDERED: POTASSIUM CHLORIDE 20 MEQ TABLET PO STA (13:46)
[2022-07-02 13:49] LABS: RBC MORPHOLOGY (MULTIPLE) 3+ ANISOCYTOSIS (NORMAL)
--- NOTE | 2022-07-02 13:53 | XRAY Report ---
PROCEDURE: Chest 1 View X-Ray INDICATIONS: fall/bruising TECHNIQUE: One view of the chest was acquired. COMPARISON: None. FINDINGS: Surgical changes and devices: None. Lungs and pleura: No pleural effusions or pneumothorax. Focal consolidation, right mid to upper lung field. Mediastinum: Mediastinal contours appear normal. Heart size is normal. Bones and chest wall: No suspicious bony lesions. Overlying soft tissues appear unremarkable. IMPRESSION: Focal consolidation, right mid to upper lung field. Comment: In the setting of acute trauma, this focal consolidation can either represent pneumonia, or pulmonary contusion. Reviewed by: Michael Davis MD on 07/02/2022 1:52 PM PDT Approved by: Michael Davis MD on 07/02/2022 1:52 PM PDT Station ID: [id number]
[2022-07-02] MEDS ORDERED: MORPHINE 2 MG/ML CARPUJECT IVP PRN (14:23)
[2022-07-02] MEDS ORDERED: ONDANSETRON ODT 4 MG TABLET TL PRN (14:23)
[2022-07-02] MEDS ORDERED: SODIUM CHLORIDE FLUSH 0.9% 10 ML SYRINGE IVP PRN (14:23)
[2022-07-02] MEDS ORDERED: ONDANSETRON 4 MG/2 ML VIAL IVP PRN (14:23)
[2022-07-02] MEDS ORDERED: LORazepam 2 MG/ML VIAL IVP PRN (14:28)
[2022-07-02] MEDS: ACETAMINOPHEN 325 MG TABLET PO PRN (15:59)
[2022-07-02] MEDS: chlordiazePOXIDE 5 MG CAPSULE PO SCH ×3 (15:59→22:50)
[2022-07-02] MEDS: SODIUM CHLORIDE 0.9% 1,000 ML IV SCH (15:59)
[2022-07-02] MEDS: SODIUM CHLORIDE FLUSH 0.9% 10 ML SYRINGE IVP SCH (15:59)
[2022-07-02] MEDS ORDERED: MAGNESIUM SULFATE 2 GRAM 2 GM/50 ML BAG IV ONE (16:00)
--- NOTE | 2022-07-02 17:54 | HISTORY & PHYSICAL EXAMINATION ---
Chief Complaint - Chief Complaint Chief Complaint: alcohol withdrawal History of Present Illness - Admitted From Admitted From:: home via POV - History Obtained From Records Reviewed: [employer] [facility] History obtained from: mom Exam Limitations: patient lethargy - History of Present Illness HPI Comment/Other: This is a 31-year-old female who drinks 2 bottles of wine a day. She has frequent visits to our emergency room with regards to alcohol abuse and all of his complications. First episode appears to be in 2017. Previous problems with her alcohol abuse if included alcoholic gastritis and pancreatitis in January 2020. Chronic findings of cirrhosis and ascites on CT. And multiple episodes of intoxication followed by alcohol withdrawal. Her last episode of admission to our hospital was in July 2020. Her episode of intoxication and withdrawal was complicated by right upper quadrant pain. In the middle of getting evaluation for her right upper quadrant pain, a CODE BLUE was called. I verified that there was no pulse and CPR was instituted and she was intubated and full ACLS protocol instituted. She was felt to be in septic shock, gram-positive bacteremia. She was transferred to [facility]. Problems that were treated with her stay were multifactorial encephalopathy. She had quite a bit of delirium. She had anoxic brain injury, hepatic encephalopathy. Vocal cord paralysis from intubation. She was also treated for decompensated alcohol- related cirrhosis. She was discharged on rifaximin, lactulose, Lasix 80 mg daily and spironolactone 200 mg daily. She had dysphonia related to the encephalopathy and vocal cord dysfunction. A persistent leukocytosis with neutrophilia that was felt to be leukemoid reaction. Hematology was consulted and she had a bone marrow biopsy. Macrocytic anemia with folate deficiency was treated. Other problems were GERD, Burkholderia colonization, MSSA bacteremia that was treated for 2 weeks of Vanco and cefepime then Vanco and Zosyn and then sent Ancef. She had a MERRITT with no vegetations. Alcohol withdrawal seizure was treated with phenobarbital. Echocardiogram during that stay showed a small left ventricle, but normal thickness and ejection fraction of 80%. Normal diastolic dysfunction. Normal valvular anatomy and function. After her discharge from she was seen by her PCP Dr. Montes later in 2021. He felt that she was somewhat dehydrated from her diuretic regimen and he cut it in half. Her problems in the clinic have been depression. She has been given medication. She has been waiting for her insurance card so she can go to outpatient treatment for alcohol use disorder. That was the last clinic visit. With this visit she was brought in by private vehicle for her mom. The patient told ER triage that she was in alcohol withdrawal. She is drinking 3 bottles of wine a day and 3 but has bombs a day. Her last drink was at 5:00 yesterday. She stopped drinking but has had vomiting. She is unsteady on her feet. She started coughing yesterday. She does not describe hemoptysis, fever, chills. She is just felt unsteady on her feet she feels like she cannot walk. Temperature 37.7, heart rate 129, blood pressure 123/80. Respirations 18 and she was 97% on room air. In spite of fluids, vitamins, the patient went on to have a temperature of 39.3. Heart rate of 122. Respirations 30 and 97% on room air. Her labs show hyponatremia of 130, hypokalemia of 2.8. BUN and creatinine are normal. Total bili is 4.9. AST 87. Lipase is 38. Alcohol level is less than 5. INR is 1.8. White cell count is 9. Hemoglobin 11.3. MCV 100.9. The ER provider feels that this is alcohol withdrawal and has asked the hospitalist service to admit the patient for this.The ER provider gave her IV fluids, and 1 dose of Ativan. No thiamine or folate. There is no mention on chest x-ray of pneumonia that I am seeing on chest x-ray History - Past Medical History Cardiovascular: reports: Hypertension, Other (obesity, cardiac arrest and r espiratory arrest w sepsis and hypercapnea 07/2020) Respiratory: reports: None Neuro: reports: None Endocrine/Autoimmune: reports: None GI: reports: GERD, Pancreatitis, Hepatitis (alcoholic), Cirrhosis DERRICK BOAT RUNNER: reports: None : reports: None HEENT: reports: None Psych: reports: Depression, Anxiety Musculoskeletal: reports: None Derm: reports: None MRSA Hx?: No - Past Surgical History Derm: reports: Other - Family & Social History Family History Comment/Other: Mom is alive and has hypertension, asthma, arthritis. Dad left their home when she was 4 years old and she has not had contact with him and does not know what his history is. 1 brother has problems with alcohol abuse but has been clean and sober for years. Sister is healthy. 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 She also used to work at [employer]. She now works at [employer]. Single. Her emergency contact is her mother Tara Jarvis. She does live with her mom. 1/2 PPD smoker from [id number]. Alcoholic. 3 bottles wine and 3 buzz bombs a day now. Denies any other recreational substance abuse. No cocaine, heroin, LSD, methamphetamines. - Substance History Abuse: Recurrent use of substance despite neg consequences: Alcohol Abuse Issues: Intoxication, Anxiety Disorder, Delirium, Delusions, Hallucinations Dependence: Experiences withdrawal or developed tolerances: Alcohol Dependence Issues: Intoxication, Anxiety Disorder, Delirium, Delusions, Hallucinations, Mood Disorder - POLST Patient has POLST: No POLST Status: Full Code Meds/Allgy - Home Medications Home Medications: Ambulatory Orders Medication Instructions Recorded Confirmed No Known Home Medications 07/02/22 07/02/22 - Allergies Allergies/Adverse Reactions: Allergies Allergy/AdvReac Type Severity Reaction Status Date / Time morphine Allergy Severe Anaphylaxis Verified 07/02/22 16:23 - Coded after receiving morphine. Prior Level of Functionality: Does not use any durable medical equipment. 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 Speech is slightly slurred. Slightly shaky with effort of trying to sit up for me. But there is no tremulousness, or tremors.) Eyes Bilateral: positive: PERRL, EOMI ENT: positive: Pharynx nml Neck: positive: No JVD. negative: Stiff neck Respiratory: positive: No respiratory distress. negative: Wheezes, Rales, Rhonchi Cardiovascular: positive: Regular rate & rhythm (Very hyperdynamic PMI.), Tachycardia, Systolic murmur (That I suspect is a flow murmur. Loudest at the left upper sternal border, nonradiating.) Peripheral Pulses: positive: 1+ Abdomen: positive: Non-tender, No organomegaly, Nml bowel sounds, No distention Skin: positive: Warm, Dry, Diaphoresis Extremities: positive: Non-tender, Full ROM, No pedal edema Neurologic/Psychiatric: positive: Oriented x3, CN's nml (2-12), Motor nml (Other than a tiny bit of shakiness with exertion. Holding her hand straight out there is no asterixis or tremors) Conclusion/Plan - Problem List (1) Alcohol withdrawal Conclusion/Plan: Unfortunately this is 1 of many episodes for this very young female. She had severe complications in July 2020 including cardiac and pulmonary arrest. Plan: Inpatient status CIWA protocol Librium 5 mg p.o. 3 times daily Ativan 1 mg to 30 minutes as needed CIWA score greater than 8 Qualifiers: Complication of substance-induced condition: uncomplicated Qualified Code(s): F10.930 - Alcohol use, unspecified with withdrawal, uncomplicated (2) Ascites due to alcoholic cirrhosis Conclusion/Plan: Medications from [facility] discharge were noted in 2020. At this time the patient is not taking any medications for cirrhosis. Her clinic has her on omeprazole, trazodone, bupropion and a multivitamin. 2020 she had a high Madrey's discrimination function with the highest liver function studies that she had in all of her medical history. Current LFTs are not nearly as severely elevated. For completeness sake I did order a infectious hepatitis panel without admission and her infectious hepatitis panel was negative for a, B, C. I calculated her Maddrey discrimination function for alcoholic hepatitis. She is scoring at 38.5 points. Greater than 32 points indicates poor prognosis and patient may benefit from glucocorticoid therapy. I also calculated her MELD 3.0 score. She scores 24 points, and she has an 89.5% estimated 90-day survival. Plan: Check ammonia level, Resume rifaximin and lactulose if appropriate prednisolone 40 mg IVP daily Protonix 40 mg IV push daily US of abdomen to access for portal hypertension, splenomegaly, ascites (3) Pneumonia Conclusion/Plan: There is no antecedent history of cough, fever, chills. White cell count is not elevated. This may be due to aspiration in an intoxicated person. She is not hypoxic but she is tachypneic. Her breath rate is anywhere between 24-30. She spiked a temp to 39.3 in the emergency room. Plan: Blood cultures, 2 sets Community-acquired pneumonia pathway of Rocephin and azithromycin If she does not respond to this, I would have a low threshold of adding something to cover aspiration pneumonitis such as clindamycin Qualifiers: Pneumonia type: due to unspecified organism Laterality: right Lung location: middle lobe of lung Qualified Code(s): J18.9 - Pneumonia, unspecified organism (4) Hypokalemia Conclusion/Plan: She received 40 mEq in the emergency room. We will check levels tomorrow morning. She is also received magnesium 1 g IV push. (5) Macrocytic anemia Conclusion/Plan: B12 and folate levels in the morning. She is already can to be supplemented with multivitamin and thiamine - Lab Results Lab results reviewed: Yes Fish Bones: 07/02/22 13:18 07/02/22 13:18 - Diagnostic Imaging Results Diagnostic Imaging Results: positive: Final report reviewed Diagnostic Imaging Results Comments: Focal consolidation of the right mid to upper lung field Core Measures - Anticipated LOS I expect patient to be DC'd or transferred within 96 hours.: Yes - DVT/VTE - Prophylaxis VTE/DVT Device ordered at admit?: Yes
[2022-07-02] MEDS: THIAMINE 100 MG TABLET PO SCH (18:56)
[2022-07-02] MEDS: PRENATAL VITAMIN TABLET PO SCH (18:56)
[2022-07-02] MEDS: AZITHROMYCIN INJ 500 MG in SODIUM CHLORIDE 0.9% 250 ML IV SCH (20:43)
[2022-07-02 21:31] LABS: GLUCOSE, URINE (UA) NEGATIVE (NEGATIVE); KETONES,URINE (UA) TRACE mg/dL (NEGATIVE); LEUKOCYTE ESTERASE, URINE SMALL (NEGATIVE); NITRITE,URINE POSITIVE (NEGATIVE); OCCULT BLOOD,URINE MODERATE (NEGATIVE); PROTEIN,URINE 100 mg/dL (NEGATIVE)
[2022-07-02 21:33] LABS: CLARITY,URINE HAZY (CLEAR); HCG UR QUAL NEGATIVE
[2022-07-02 21:34] LABS: BILIRUBIN,URINE COLOR INTERFERENCE (NEGATIVE)
[2022-07-02 21:42] LABS: BACTERIA,URINE Few /HPF (None Seen); MUCUS,URINE Marked Strands; SQUAMOUS EPITHELIAL CELL,UR FEW Squamous (<= Few)
[2022-07-02] MEDS: cefTRIAXone 1 GM in SODIUM CHLORIDE 0.9% MINIBAG 100 ML IV SCH (22:50)
[2022-07-03] MEDS: SODIUM CHLORIDE FLUSH 0.9% 10 ML SYRINGE IVP SCH ×4 (01:49→23:46)
[2022-07-03] MEDS: ACETAMINOPHEN 325 MG TABLET PO PRN ×2 (02:09→08:34)
[2022-07-03 05:13] LABS: BASOPHILS % (AUTO) 0.8 %; HCT - HEMATOCRIT 31.3 % (37.0-47.0); HGB - HEMOGLOBIN 10.2 g/dL (12.0-16.0); LYMPHOCYTES % (AUTO) 13.3 %; MEAN CORPUSCULAR HEMOGLOBIN 34.2 pg (27.0-31.0); MEAN CORPUSCULAR HGB CONC 32.6 g/dL (32.0-36.0); MEAN PLATELET VOLUME 12.8 fL (7.9-10.8); MONOCYTES % (AUTO) 12.6 %; NEUTROPHILS % (AUTO) 72.7 %; RED BLOOD COUNT 2.98 10^6/uL (4.20-5.40); RED CELL DISTRIBUTION WIDTH 16.2 % (12.0-15.0); WHITE BLOOD COUNT 6.3 x10^3/uL (4.8-10.8)
[2022-07-03 05:19] LABS: PLT - PLATELET COUNT 35 10^3/uL (130-450)
[2022-07-03 05:20] LABS: ABNORMAL LYMPHS % (MANUAL) 0 %
[2022-07-03 05:24] LABS: ALBUMIN 2.7 g/dL (3.2-5.5); ALBUMIN/GLOBULIN RATIO 0.5 (1.0-2.2); CALCIUM 7.9 mg/dL (8.5-10.3); CREATININE 0.4 mg/dL (0.4-1.0); POTASSIUM 3.1 mmol/L (3.5-5.0); TOTAL PROTEIN 7.8 g/dL (6.7-8.2)
[2022-07-03 05:27] LABS: BAND NEUTROPHILS % (MANUAL) 2 %; DIFFERENTIAL COMMENT MANUAL DIFFERENTIAL; LYMPHOCYTES % (MANUAL) 16 %; MONOCYTES # (MANUAL) 0.2 10^3/uL (0.0-1.0); NEUTROPHILS # (MANUAL) 5.1 10^3/uL (1.5-6.6); PLATELET ESTIMATE, MANUAL DECREASED (<130,000) (NORMAL); PLATELET MORPHOLOGY NORMAL APPEARANCE (NORMAL); RBC MORPHOLOGY (MULTIPLE) 2+ ANISOCYTOSIS (NORMAL); WBC MORPHOLOGY (MULTIPLE) NORMAL APPEARANCE (NORMAL)
[2022-07-03] MEDS: chlordiazePOXIDE 5 MG CAPSULE PO SCH ×4 (06:26→23:46)
[2022-07-03 06:34] LABS: MUDS CUTOFF CONCENTRATIONS CUTOFF CONC BELOW:
[2022-07-03 06:46] LABS: AMPHETAMINE SCREEN,URINE NEGATIVE (NEGATIVE); BARBITURATE SCREEN,UR NEGATIVE (NEGATIVE); BENZODIAZEPINES SCREEN, URINE POSITIVE (NEGATIVE); COCAINE SCREEN URINE NEGATIVE (NEGATIVE); METHADONE SCREEN, URINE NEGATIVE (NEGATIVE); METHAMPHETAMINES SCREEN, URINE NEGATIVE (NEGATIVE); OPIATE SCREEN, URINE NEGATIVE (NEGATIVE); OXYCODONE SCREEN, URINE NEGATIVE (NEGATIVE); PROPOXYPHENE SCREEN, URINE NEGATIVE (NEGATIVE); THC CANNABINOID SCREEN, URINE NEGATIVE (NEGATIVE); TRICYCLIC ANTIDEPRESSANT,URINE NEGATIVE (NEGATIVE)
[2022-07-03] MEDS ORDERED: PANTOPRAZOLE 40 MG VIAL IVP SCH (07:00)
[2022-07-03] MEDS: cefTRIAXone 1 GM in SODIUM CHLORIDE 0.9% MINIBAG 100 ML IV SCH (08:29)
[2022-07-03] MEDS: SODIUM CHLORIDE 0.9% 1,000 ML IV SCH (08:33)
[2022-07-03] MEDS: PRENATAL VITAMIN TABLET PO SCH (08:35)
[2022-07-03] MEDS: SACCHAROMYCES BOULARDII 250 MG CAPSULE PO SCH ×2 (08:35→17:03)
[2022-07-03] MEDS: THIAMINE 100 MG TABLET PO SCH (08:36)
[2022-07-03] MEDS: methylPREDNISolone SUCCINATE 40 MG/ML VIAL IVP SCH (08:36)
[2022-07-03] MEDS: AZITHROMYCIN INJ 500 MG in SODIUM CHLORIDE 0.9% 250 ML IV SCH (08:59)
--- NOTE | 2022-07-03 12:38 | Ultrasound Report ---
PROCEDURE: Abdomen Complete INDICATIONS: alcohol abuse, hx of cirrhosis, noncompliant TECHNIQUE: Real-time scanning was performed of the abdominal and retroperitoneal organs, with image documentatio n. COMPARISON: None. FINDINGS: Liver: Increased liver echogenicity. Nodular contour. No solid mass. Hepatopedal flow of the main po rtal vein. Recannulized umbilical vein. Gallbladder: Unremarkable. Biliary ducts: Intrahepatic bile ducts are non-dilated. Extrahepatic bile duct caliber measures 4 m m. Normal is 6-7 mm or less in diameter, or 10 mm or less post-cholecystectomy. Pancreas: Visualized portions of the pancreas are sonographically normal. Spleen: Spleen is enlarged. Kidneys: Kidneys are normal in size and echotexture. Right kidney measures 14.4 cm long; left kidne y measures 15.1 cm long. No hydronephrosis or nephrolithiasis. No solid masses. No complex renal cy stic lesions which require follow-up. Aorta: Visualized aorta is normal in caliber at less than 3 cm. Iliacs: Proximal common iliac arteries are normal in caliber at less than 2.5 cm. IVC: Intrahepatic inferior vena cava is patent. Miscellaneous: No free abdominal fluid. IMPRESSION: Cirrhosis with portal hypertension. No solid mass. Reviewed by: Se Morelos on 07/03/2022 12:36 PM PDT Approved by: Se Morelos on 07/03/2022 12:36 PM PDT Station ID: [id number]
[2022-07-03] MEDS ORDERED: POTASSIUM CHLORIDE 20 MEQ TABLET PO STA (17:24)
--- NOTE | 2022-07-03 17:27 | PROVIDER PROGRESS NOTE ---
Assessment/Plan - Problem List (1) Alcohol withdrawal Qualifiers: Complication of substance-induced condition: uncomplicated Qualified Code(s): F10.930 - Alcohol use, unspecified with withdrawal, uncomplicated Assessment/Plan: Stable, but with continued tremors Cont CIWA protocol (2) Alcoholic hepatitis Qualifiers: Assessment/Plan: Patient with presenting Maddrey score of 38, warranting steroid therapy Continue prednisone 40 mg IV daily Continue Protonix Ultrasound does show liver cirrhosis with portal hypertension without a solid mass Mainstay is steroids, supportive care, and outpatient hepatology referral (3) Thrombocytopenia Assessment/Plan: 2/2 to liver cirrhosis Monitor for bleeding No indication for platelet transfusion (4) Hypokalemia Assessment/Plan: Likely secondary to alcoholism and liver failure P.o. replacement ordered Monitor labs (5) Pneumonia Qualifiers: Pneumonia type: due to unspecified organism Laterality: right Lung location: middle lobe of lung Qualified Code(s): J18.9 - Pneumonia, unspecified organism Assessment/Plan: Stable on room air Continue current azithromycin and Rocephin - Current Meds Current Meds: Current Medications Generic Name Dose Route Start Last Admin Trade Name Freq PRN Reason Stop Dose Admin Acetaminophen 650 mg 07/02/22 14:23 07/03/22 08:34 Acetaminophen 325 Mg Tablet PO 650 mg Q4HR PRN Administration Pain 1 to 4, or Fever Chlordiazepoxide HCl 10 mg 07/02/22 15:00 07/03/22 17:17 Chlordiazepoxide 5 Mg Capsule PO 10 mg Q6HR MARIA C Administration Ceftriaxone Sodium 1 gm/ 100 mls @ 200 mls/hr 07/02/22 19:00 07/03/22 08:29 Sodium Chloride IV 07/06/22 09:29 200 mls/hr DAILY MARIA C Administration Azithromycin 500 mg/ Sodium 250 mls @ 250 mls/hr 07/02/22 18:24 07/03/22 08:59 Chloride IV 07/04/22 09:59 250 mls/hr DAILY MARIA C Administration Methylprednisolone 40 mg 07/03/22 09:00 07/03/22 08:36 Methylprednisolone Succinate 40 Mg/Ml Vial IVP 40 mg DAILY MARIA C Administration Multivit/Folic Acid/Iron 1 tab 07/02/22 18:04 07/03/22 08:35 Vitamin Tablet PO 1 tab DAILY MARIA C Administration Saccharomyces Boulardii 250 mg 07/03/22 08:00 07/03/22 17:03 Will Vossi 250 Mg Capsule PO 250 mg BIDWM MARIA C Administration Sodium Chloride 10 ml 07/02/22 14:23 07/02/22 20:47 Sodium Chloride Flush 0.9% 10 Ml Syringe IVP 10 ml PRN PRN Administration NEEDED PER PROVIDER ORDERS Sodium Chloride 10 ml 07/02/22 17:00 07/03/22 17:04 Sodium Chloride Flush 0.9% 10 Ml Syringe IVP Not Given 0100,0900,1700 MARIA C Thiamine HCl 100 mg 07/02/22 18:04 07/03/22 08:36 Thiamine 100 Mg Tablet PO 100 mg DAILY MARIA C Administration - Lab Result Lab results reviewed: Yes Fish Bone Diagrams: 07/03/22 05:00 07/03/22 05:00 - Diagnostic Imaging Results Diagnostic Imaging Results: Final report reviewed - Additional Planning Condition/Complexity: Guarded My Orders: My Active Orders 07/03/22 Dinner Regular Diet [DIET] 07/03/22 17:24 Potassium Chloride [K-Dur] 40 meq PO ONCE STA Plan Discussed with:: Patient, Mother Subjective - Subjective Patient Reports: Feeling Better Objective Vital Signs: Vital Signs - 24 hr 07/02/22 07/02/22 07/03/22 21:20 23:58 05:06 Temperature 38.0 C H 38.1 C H 37.4 C Heart Rate [ 107 H 114 H 104 H Brachial] Respiratory 24 34 H 34 H Rate Blood Pressure 132/69 H 133/68 H 141/77 H [Left Brachial artery] Blood Pressure [Right Brachial artery] O2 Saturation 96 95 97 07/03/22 07/03/22 07/03/22 08:00 09:00 13:00 Temperature 37.5 C 37.4 C 37.3 C Heart Rate [ 94 97 Brachial] Respiratory 20 20 Rate Blood Pressure 122/67 137/80 H [Left Brachial artery] Blood Pressure [Right Brachial artery] O2 Saturation 97 96 07/03/22 16:00 Temperature 37.5 C Heart Rate [ 96 Brachial] Respiratory 24 Rate Blood Pressure [Left Brachial artery] Blood Pressure 130/69 [Right Brachial artery] O2 Saturation 96 Oxygen O2 Source Room air I&O (Last 24 Hrs): Intake and Output Totals x24h 07/01/22 07/02/22 07/03/22 23:59 23:59 23:59 Intake Total 1350 1420 Output Total 100 Balance 1250 1420 General: Alert, Oriented x3 HEENT: Atraumatic Neuro: Other (Moderately tremulous) Respiratory: Chest non-tender, No respiratory distress, Breath sounds nml Abdomen: Other (Mildly distended) Extremities: No edema, Normal pulses - Results Results: Laboratory Results WBC 6.3 x10^3/uL (4.8-10.8) 07/03/22 05:00 RBC 2.98 10^6/uL (4.20-5.40) L 07/03/22 05:00 Hgb 10.2 g/dL (12.0-16.0) L 07/03/22 05:00 Hct 31.3 % (37.0-47.0) L 07/03/22 05:00 MCV 105.0 fL (81.0-99.0) H 07/03/22 05:00 MCH 34.2 pg (27.0-31.0) H 07/03/22 05:00 MCHC 32.6 g/dL (32.0-36.0) 07/03/22 05:00 RDW 16.2 % (12.0-15.0) H 07/03/22 05:00 Plt Count 35 10^3/uL (130-450) L* 07/03/22 05:00 MPV 12.8 fL (7.9-10.8) H 07/03/22 05:00 Neut # (Auto) Not Reportable 07/03/22 05:00 Lymph # (Auto) Not Reportable 07/03/22 05:00 [place] # (Auto) Not Reportable 07/03/22 05:00 Eos # (Auto) Not Reportable 07/03/22 05:00 Baso # (Auto) Not Reportable 07/03/22 05:00 Absolute Nucleated RBC Not Reportable 07/03/22 05:00 Total Counted 100 07/03/22 05:00 Band Neuts % (Manual) 2 % (0-10) 07/03/22 05:00 Abnorm Lymph % (Manual) 0 % 07/03/22 05:00 Nucleated RBC % Not Reportable 07/03/22 05:00 Neutrophils # (Manual) 5.1 10^3/uL (1.5-6.6) 07/03/22 05:00 Lymphocytes # (Manual) 1.0 10^3/uL (1.5-3.5) L 07/03/22 05:00 Monocytes # (Manual) 0.2 10^3/uL (0.0-1.0) 07/03/22 05:00 Eosinophils # (Manual) 0.0 10^3/uL (0-0.7) 07/03/22 05:00 Basophils # (Manual) 0.0 10^3/uL (0-0.1) 07/03/22 05:00 Differential Comment MANUAL DIFFERENTIAL 07/03/22 05:00 Manual Slide Review Indicated 07/02/22 13:18 WBC Morphology NORMAL APPEARANCE (NORMAL) 07/03/22 05:00 Platelet Estimate DECREASED (<130,000) (NORMAL) 07/03/22 05:00 Platelet Morphology NORMAL APPEARANCE (NORMAL) 07/03/22 05:00 RBC Morph Micro Appear 2+ ANISOCYTOSIS (NORMAL) 07/03/22 05:00 PT 19.9 secs (9.9-12.6) H 07/02/22 13:18 INR 1.8 (0.8-1.2) H 07/02/22 13:18 Sodium 135 mmol/L (135-145) 07/03/22 05:00 Potassium 3.1 mmol/L (3.5-5.0) L 07/03/22 05:00 Chloride 104 mmol/L (101-111) 07/03/22 05:00 Carbon Dioxide 25 mmol/L (21-32) 07/03/22 05:00 Anion Gap 6.0 (6-13) 07/03/22 05:00 BUN 15 mg/dL (6-20) 07/03/22 05:00 Creatinine 0.4 mg/dL (0.4-1.0) 07/03/22 05:00 Estimated GFR (MDRD) 185 (>89) 07/03/22 05:00 Glucose 117 mg/dL (70-100) H 07/03/22 05:00 Calcium 7.9 mg/dL (8.5-10.3) L 07/03/22 05:00 Magnesium 1.3 mg/dL (1.7-2.8) L 07/02/22 13:18 Total Bilirubin 4.0 mg/dL (0.2-1.0) H 07/03/22 05:00 AST 83 IU/L (10-42) H 07/03/22 05:00 ALT 26 IU/L (10-60) 07/03/22 05:00 Alkaline Phosphatase 55 IU/L (42-121) 07/03/22 05:00 Ammonia 76.7 umol/L (7-35) H 07/03/22 05:00 Total Protein 7.8 g/dL (6.7-8.2) 07/03/22 05:00 Albumin 2.7 g/dL (3.2-5.5) L 07/03/22 05:00 Globulin 5.1 g/dL (2.1-4.2) H 07/03/22 05:00 Albumin/Globulin Ratio 0.5 (1.0-2.2) L 07/03/22 05:00 Lipase 38 U/L (22-51) 07/02/22 13:18 Vitamin B12 463 pg/mL (180-914) 07/03/22 05:00 Folate 9.37 ng/mL (5.90 - >24.8) 07/03/22 05:00 Urine Color ORANGE 07/02/22 21:05 Urine Clarity HAZY (CLEAR) 07/02/22 21:05 Urine pH 6.0 PH (5.0-7.5) 07/02/22 21:05 Ur Specific [place] >=1.030 (1.002-1.030) H 07/02/22 21:05 Urine Protein 100 mg/dL (NEGATIVE) H 07/02/22 21:05 Urine Glucose (UA) NEGATIVE mg/dL (NEGATIVE) 07/02/22 21:05 Urine Ketones TRACE mg/dL (NEGATIVE) 07/02/22 21:05 Urine Occult Blood MODERATE (NEGATIVE) H 07/02/22 21:05 Urine Nitrite POSITIVE (NEGATIVE) H 07/02/22 21:05 Urine Bilirubin COLOR INTERFERENCE (NEGATIVE) 07/02/22 21:05 Urine Urobilinogen E.U./dL (NORMAL) 07/02/22 21:05 Ur Leukocyte Esterase SMALL (NEGATIVE) H 07/02/22 21:05 Urine RBC 6-10 /HPF (0-5) H 07/02/22 21:05 Urine WBC 11-25 /HPF (0-5) H 07/02/22 21:05 Ur Squamous Epith Cells FEW Squamous (<= Few) 07/02/22 21:05 Urine Bacteria Few /HPF (None Seen) 07/02/22 21:05 Urine Mucus Marked Strands 07/02/22 21:05 Ur Microscopic Review INDICATED 07/02/22 21:05 Urine Culture Comments INDICATED 07/02/22 21:05 Urine HCG, Qual NEGATIVE 07/02/22 21:05 Urine Opiates Screen NEGATIVE (NEGATIVE) 07/02/22 09:05 Ur Oxycodone Screen NEGATIVE (NEGATIVE) 07/02/22 09:05 Urine Methadone Screen NEGATIVE (NEGATIVE) 07/02/22 09:05 Ur Propoxyphene Screen NEGATIVE (NEGATIVE) 07/02/22 09:05 Ur Barbiturates Screen NEGATIVE (NEGATIVE) 07/02/22 09:05 Ur Tricyclics Screen NEGATIVE (NEGATIVE) 07/02/22 09:05 Ur Phencyclidine Scrn NEGATIVE (NEGATIVE) 07/02/22 09:05 Ur Amphetamine Screen NEGATIVE (NEGATIVE) 07/02/22 09:05 U Methamphetamines Scrn NEGATIVE (NEGATIVE) 07/02/22 09:05 U Benzodiazepines Scrn POSITIVE (NEGATIVE) H 07/02/22 09:05 Urine Cocaine Screen NEGATIVE (NEGATIVE) 07/02/22 09:05 U Cannabinoids Screen NEGATIVE (NEGATIVE) 07/02/22 09:05 Ethyl Alcohol < 5.0 mg/dL 07/02/22 13:18 - Procedures Procedures: Procedures INSERTION OF ENDOTRACHEAL AIRWAY INTO TRACHEA, VIA OPENING (08/18/20) INSERTION OF INFUSION DEV INTO SUP VENA CAVA, PERC APPROACH (08/18/20) PERFORMANCE OF CARDIAC OUTPUT, SINGLE, MANUAL (08/18/20) RESPIRATORY VENTILATION, LESS THAN 24 CONSECUTIVE HOURS (08/18/20) ABX Reporting Has patient been on IV antibiotics over the past 48 hours?: No Current Medications - Current Medications Current Medications: Active Medications Generic Name Dose Route Start Last Admin Trade Name Freq PRN Reason Stop Dose Admin Acetaminophen 650 mg 07/02/22 14:23 07/03/22 08:34 Acetaminophen 325 Mg Tablet PO 650 mg Q4HR PRN Administration Pain 1 to 4, or Fever Chlordiazepoxide HCl 10 mg 07/02/22 15:00 07/03/22 17:17 Chlordiazepoxide 5 Mg Capsule PO 10 mg Q6HR MARIA C Administration Ceftriaxone Sodium 1 gm/ 100 mls @ 200 mls/hr 07/02/22 19:00 07/03/22 08:29 Sodium Chloride IV 07/06/22 09:29 200 mls/hr DAILY MARIA C Administration Azithromycin 500 mg/ Sodium 250 mls @ 250 mls/hr 07/02/22 18:24 07/03/22 08:59 Chloride IV 07/04/22 09:59 250 mls/hr DAILY MARIA C Administration Lorazepam 1 mg 07/02/22 18:04 Lorazepam 2 Mg/Ml Vial IVP Q30M PRN CIWA >8 Protocol Methylprednisolone 40 mg 07/03/22 09:00 07/03/22 08:36 Methylprednisolone Succinate 40 Mg/Ml Vial IVP 40 mg DAILY MARIA C Administration Ondansetron HCl 4 mg 07/02/22 14:23 Ondansetron Odt 4 Mg Tablet TL Q6HR PRN Nausea / Vomiting Ondansetron HCl 4 mg 07/02/22 14:23 Ondansetron 4 Mg/2 Ml Vial IVP Q6HR PRN Nausea / Vomiting Pantoprazole Sodium 40 mg 07/04/22 07:00 Pantoprazole 40 Mg Tablet PO QDAC MARIA C Multivit/Folic Acid/Iron 1 tab 07/02/22 18:04 07/03/22 08:35 Vitamin Tablet PO 1 tab DAILY MARIA C Administration Saccharomyces Boulardii 250 mg 07/03/22 08:00 07/03/22 17:03 Saccharomyces Boulardii 250 Mg Capsule PO 250 mg BIDWM MARIA C Administration Sodium Chloride 10 ml 07/02/22 14:23 07/02/22 20:47 Sodium Chloride Flush 0.9% 10 Ml Syringe IVP 10 ml PRN PRN Administration NEEDED PER PROVIDER ORDERS Sodium Chloride 10 ml 07/02/22 17:00 07/03/22 17:04 Sodium Chloride Flush 0.9% 10 Ml Syringe IVP Not Given 0100,0900,1700 MARIA C Thiamine HCl 100 mg 07/02/22 18:04 07/03/22 08:36 Thiamine 100 Mg Tablet PO 100 mg DAILY MARIA C Administration No Known Home Medications 07/02/22
[2022-07-04] MEDS: LORazepam 2 MG/ML VIAL IVP PRN ×20 (02:53→18:53)
[2022-07-04] MEDS: chlordiazePOXIDE 5 MG CAPSULE PO SCH (06:08)
[2022-07-04] MEDS: PANTOPRAZOLE 40 MG TABLET PO SCH (06:08)
[2022-07-04 07:32] LABS: ALBUMIN 2.8 g/dL (3.2-5.5); ALBUMIN/GLOBULIN RATIO 0.5 (1.0-2.2); BILIRUBIN,TOTAL 3.7 mg/dL (0.2-1.0); CALCIUM 8.1 mg/dL (8.5-10.3); CREATININE 0.4 mg/dL (0.4-1.0); POTASSIUM 3.4 mmol/L (3.5-5.0)
[2022-07-04 07:46] LABS: BASOPHILS % (AUTO) 0.6 %; EOSINOPHILS % (AUTO) 0.2 %; HCT - HEMATOCRIT 31.7 % (37.0-47.0); HGB - HEMOGLOBIN 10.2 g/dL (12.0-16.0); LYMPHOCYTES # (AUTO) 0.8 10^3/uL (1.5-3.5); LYMPHOCYTES % (AUTO) 12.8 %; MEAN CORPUSCULAR HEMOGLOBIN 33.8 pg (27.0-31.0); MEAN CORPUSCULAR HGB CONC 32.2 g/dL (32.0-36.0); MEAN PLATELET VOLUME 12.8 fL (7.9-10.8); MONOCYTES # (AUTO) 0.4 10^3/uL (0.0-1.0); MONOCYTES % (AUTO) 6.9 %; NEUTROPHILS # (AUTO) 4.9 10^3/uL (1.5-6.6); NEUTROPHILS % (AUTO) 78.5 %; PLT - PLATELET COUNT 52 10^3/uL (130-450); RED BLOOD COUNT 3.02 10^6/uL (4.20-5.40); RED CELL DISTRIBUTION WIDTH 15.9 % (12.0-15.0); WHITE BLOOD COUNT 6.3 x10^3/uL (4.8-10.8)
[2022-07-04] MEDS ORDERED: LORazepam 2 MG/ML VIAL IVP STA (08:01)
[2022-07-04] MEDS: cefTRIAXone 1 GM in SODIUM CHLORIDE 0.9% MINIBAG 100 ML IV SCH ×2 (09:04→11:49)
[2022-07-04] MEDS: SACCHAROMYCES BOULARDII 250 MG CAPSULE PO SCH ×2 (09:17→17:16)
[2022-07-04] MEDS: chlordiazePOXIDE 25 MG CAPSULE PO SCH ×3 (09:19→19:01)
[2022-07-04] MEDS: THIAMINE 100 MG TABLET PO SCH (09:20)
[2022-07-04] MEDS: SODIUM CHLORIDE FLUSH 0.9% 10 ML SYRINGE IVP SCH ×2 (09:20→17:16)
[2022-07-04] MEDS: PRENATAL VITAMIN TABLET PO SCH (09:20)
[2022-07-04] MEDS: GABAPENTIN 100 MG CAPSULE PO SCH ×3 (09:20→22:25)
[2022-07-04] MEDS: methylPREDNISolone SUCCINATE 40 MG/ML VIAL IVP SCH (09:45)
[2022-07-04] MEDS: AZITHROMYCIN INJ 500 MG in SODIUM CHLORIDE 0.9% 250 ML IV SCH (10:09)
[2022-07-04] MEDS: SODIUM CHLORIDE 0.9% 1,000 ML IV SCH (15:12)
--- NOTE | 2022-07-04 17:27 | PROVIDER PROGRESS NOTE ---
Assessment/Plan - Problem List (1) Alcohol withdrawal Qualifiers: Complication of substance-induced condition: uncomplicated Qualified Code(s): F10.930 - Alcohol use, unspecified with withdrawal, uncomplicated Assessment/Plan: Patient's withdrawal worsened somewhat this morning. Required an additional 2 mg of Ativan on top of the CIWA protocol totaling 4 mg of Ativan within a 90- minute window. This resulted in a RASS score of -2 and patient appeared to be comfortable for several hours, after Ativan wore off patient become somewhat more restless but otherwise stable. We will continue CIWA protocol, have added gabapentin p.o. and increase Librium which patient will take when able to tolerate p.o. (2) Alcoholic hepatitis Qualifiers: Assessment/Plan: Patient with presenting Maddrey score of 38, warranting steroid therapy Continue prednisone 40 mg IV daily Continue Protonix Ultrasound does show liver cirrhosis with portal hypertension without a solid mass Mainstay is steroids, supportive care, and outpatient hepatology referral (3) Thrombocytopenia Assessment/Plan: 2/2 to liver cirrhosis Monitor for bleeding No indication for platelet transfusion (4) Hypokalemia Assessment/Plan: Likely secondary to alcoholism and liver failure P.o. replacement ordered Monitor labs (5) Pneumonia Qualifiers: Pneumonia type: due to unspecified organism Laterality: right Lung location: middle lobe of lung Qualified Code(s): J18.9 - Pneumonia, unspecified organism Assessment/Plan: Stable on room air Continue current azithromycin and Rocephin - Current Meds Current Meds: Current Medications Generic Name Dose Route Start Last Admin Trade Name Freq PRN Reason Stop Dose Admin Acetaminophen 650 mg 07/02/22 14:23 07/03/22 08:34 Acetaminophen 325 Mg Tablet PO 650 mg Q4HR PRN Administration Pain 1 to 4, or Fever Chlordiazepoxide HCl 25 mg 07/04/22 09:00 07/04/22 14:54 Chlordiazepoxide 25 Mg Capsule PO 25 mg Q6HR MARIA C Administration Gabapentin 100 mg 07/04/22 09:00 07/04/22 14:55 Gabapentin 100 Mg Capsule PO 100 mg TID MARIA C Administration Ceftriaxone Sodium 1 gm/ 100 mls @ 200 mls/hr 07/02/22 19:00 07/04/22 15:48 Sodium Chloride IV 07/06/22 09:29 Infused DAILY MARIA C Infusion Sodium Chloride 1,000 mls @ 83.333 mls/hr 07/04/22 15:00 07/04/22 15:12 Normal Saline 0.9% IV 83.333 mls/hr .Q12H MARIA C Administration Lorazepam 2 mg 07/04/22 09:21 07/04/22 16:37 Lorazepam 2 Mg/Ml Vial IVP 2 mg Q30M PRN Administration CIWA >8 Protocol Methylprednisolone 40 mg 07/03/22 09:00 07/04/22 09:45 Methylprednisolone Succinate 40 Mg/Ml Vial IVP 40 mg DAILY MARIA C Administration Pantoprazole Sodium 40 mg 07/04/22 07:00 07/04/22 06:08 Pantoprazole 40 Mg Tablet PO 40 mg QDAC MARIA C Administration Multivit/Folic Acid/Iron 1 tab 07/02/22 18:04 07/04/22 09:20 Vitamin Tablet PO Not Given DAILY MARIA C Saccharomyces Boulardii 250 mg 07/03/22 08:00 07/04/22 17:16 Saccharomyces Boulardii 250 Mg Capsule PO Not Given BIDWM MARIA C Sodium Chloride 10 ml 07/02/22 14:23 07/02/22 20:47 Sodium Chloride Flush 0.9% 10 Ml Syringe IVP 10 ml PRN PRN Administration NEEDED PER PROVIDER ORDERS Sodium Chloride 10 ml 07/02/22 17:00 07/04/22 17:16 Sodium Chloride Flush 0.9% 10 Ml Syringe IVP 10 ml 0100,0900,1700 MARIA C Administration Thiamine HCl 100 mg 07/02/22 18:04 07/04/22 09:20 Thiamine 100 Mg Tablet PO Not Given DAILY MARIA C - Lab Result Fish Bone Diagrams: 07/04/22 07:15 07/04/22 07:15 - Additional Planning Condition/Complexity: Critical My Orders: My Active Orders 07/04/22 09:00 Gabapentin [Neurontin] 100 mg PO TID chlordiazePOXIDE [Librium] 25 mg PO Q6HR 07/04/22 10:50 Notify Provider - Specific Ins [RC] PRN 07/04/22 13:10 MRSA (NASAL) PCR SCREEN Routine 07/04/22 15:00 Sodium Chloride 0.9% [Normal Saline 0.9%] 1,000 ml IV 83.333 mls/hr Subjective - Subjective Patient Reports: No Complaints Objective Vital Signs: Vital Signs - 24 hr 0407/03/22 07/04/22 20:07 23:45 04:12 Temperature 37.4 C 37.2 C 37.0 C Heart Rate [ 97 95 97 Brachial] Respiratory 24 22 20 Rate Blood Pressure 136/74 H [Left Brachial artery] Blood Pressure 155/76 H 141/82 H [Right Brachial artery] O2 Saturation 98 96 97 If not protocol : Oxygen Flow, liters/minute 07/04/22 07/04/22 07/04/22 07:48 08:15 08:18 Temperature 37.2 C Heart Rate [ 110 H Brachial] Respiratory 22 24 20 Rate Blood Pressure [Left Brachial artery] Blood Pressure 150/91 H [Right Brachial artery] O2 Saturation 94 89 L 97 If not protocol 1 1 : Oxygen Flow, liters/minute 07/04/22 13:00 Temperature 36.8 C Heart Rate [ 94 Brachial] Respiratory 40 H Rate Blood Pressure [Left Brachial artery] Blood Pressure 119/79 [Right Brachial artery] O2 Saturation 96 If not protocol : Oxygen Flow, liters/minute Oxygen O2 Source Room air I&O (Last 24 Hrs): Intake and Output Totals x24h 07/02/22 07/03/22 07/04/22 23:59 23:59 23:59 Intake Total 1350 3340 650 Output Total 100 Balance 1250 3340 650 General: Alert, Other (AAO x 1) HEENT: Atraumatic Neuro: Disoriented, Other (restless, agitated, mildly diaphoretic) Cardiovascular: Normal S1, Normal S2, Other (tachycardia to low 100's) Abdomen: Normal bowel sounds - Results Results: Laboratory Results WBC 6.3 x10^3/uL (4.8-10.8) 07/04/22 07:15 RBC 3.02 10^6/uL (4.20-5.40) L 07/04/22 07:15 Hgb 10.2 g/dL (12.0-16.0) L 07/04/22 07:15 Hct 31.7 % (37.0-47.0) L 07/04/22 07:15 MCV 105.0 fL (81.0-99.0) H 07/04/22 07:15 MCH 33.8 pg (27.0-31.0) H 07/04/22 07:15 MCHC 32.2 g/dL (32.0-36.0) 07/04/22 07:15 RDW 15.9 % (12.0-15.0) H 07/04/22 07:15 Plt Count 52 10^3/uL (130-450) L 07/04/22 07:15 MPV 12.8 fL (7.9-10.8) H 07/04/22 07:15 Neut # (Auto) 4.9 10^3/uL (1.5-6.6) 07/04/22 07:15 Lymph # (Auto) 0.8 10^3/uL (1.5-3.5) L 07/04/22 07:15 [place] # (Auto) 0.4 10^3/uL (0.0-1.0) 07/04/22 07:15 Eos # (Auto) 0.0 10^3/uL (0.0-0.7) 07/04/22 07:15 Baso # (Auto) 0.0 10^3/uL (0.0-0.1) 07/04/22 07:15 Absolute Nucleated RBC 0.00 x10^3/uL 07/04/22 07:15 Total Counted 100 07/03/22 05:00 Band Neuts % (Manual) 2 % (0-10) 07/03/22 05:00 Abnorm Lymph % (Manual) 0 % 07/03/22 05:00 Nucleated RBC % 0.0 /100WBC 07/04/22 07:15 Neutrophils # (Manual) 5.1 10^3/uL (1.5-6.6) 07/03/22 05:00 Lymphocytes # (Manual) 1.0 10^3/uL (1.5-3.5) L 07/03/22 05:00 Monocytes # (Manual) 0.2 10^3/uL (0.0-1.0) 07/03/22 05:00 Eosinophils # (Manual) 0.0 10^3/uL (0-0.7) 07/03/22 05:00 Basophils # (Manual) 0.0 10^3/uL (0-0.1) 07/03/22 05:00 Differential Comment MANUAL DIFFERENTIAL 07/03/22 05:00 Manual Slide Review Indicated 07/02/22 13:18 WBC Morphology NORMAL APPEARANCE (NORMAL) 07/03/22 05:00 Platelet Estimate DECREASED (<130,000) (NORMAL) 07/03/22 05:00 Platelet Morphology NORMAL APPEARANCE (NORMAL) 07/03/22 05:00 RBC Morph Micro Appear 2+ ANISOCYTOSIS (NORMAL) 07/03/22 05:00 PT 19.9 secs (9.9-12.6) H 07/02/22 13:18 INR 1.8 (0.8-1.2) H 07/02/22 13:18 Sodium 134 mmol/L (135-145) L 07/04/22 07:15 Potassium 3.4 mmol/L (3.5-5.0) L 07/04/22 07:15 Chloride 106 mmol/L (101-111) 07/04/22 07:15 Carbon Dioxide 20 mmol/L (21-32) L 07/04/22 07:15 Anion Gap 8.0 (6-13) 07/04/22 07:15 BUN 13 mg/dL (6-20) 07/04/22 07:15 Creatinine 0.4 mg/dL (0.4-1.0) 07/04/22 07:15 Estimated GFR (MDRD) 185 (>89) 07/04/22 07:15 Glucose 128 mg/dL (70-100) H 07/04/22 07:15 Calcium 8.1 mg/dL (8.5-10.3) L 07/04/22 07:15 Magnesium 2.2 mg/dL (1.7-2.8) 07/04/22 07:15 Total Bilirubin 3.7 mg/dL (0.2-1.0) H 07/04/22 07:15 AST 74 IU/L (10-42) H 07/04/22 07:15 ALT 28 IU/L (10-60) 07/04/22 07:15 Alkaline Phosphatase 58 IU/L (42-121) 07/04/22 07:15 Ammonia 76.7 umol/L (7-35) H 07/03/22 05:00 Total Protein 8.0 g/dL (6.7-8.2) 07/04/22 07:15 Albumin 2.8 g/dL (3.2-5.5) L 07/04/22 07:15 Globulin 5.2 g/dL (2.1-4.2) H 07/04/22 07:15 Albumin/Globulin Ratio 0.5 (1.0-2.2) L 07/04/22 07:15 Lipase 38 U/L (22-51) 07/02/22 13:18 Vitamin B12 463 pg/mL (180-914) 07/03/22 05:00 Folate 9.37 ng/mL (5.90 - >24.8) 07/03/22 05:00 Urine Color ORANGE 07/02/22 21:05 Urine Clarity HAZY (CLEAR) 07/02/22 21:05 Urine pH 6.0 PH (5.0-7.5) 07/02/22 21:05 Ur Specific [place] >=1.030 (1.002-1.030) H 07/02/22 21:05 Urine Protein 100 mg/dL (NEGATIVE) H 07/02/22 21:05 Urine Glucose (UA) NEGATIVE mg/dL (NEGATIVE) 07/02/22 21:05 Urine Ketones TRACE mg/dL (NEGATIVE) 07/02/22 21:05 Urine Occult Blood MODERATE (NEGATIVE) H 07/02/22 21:05 Urine Nitrite POSITIVE (NEGATIVE) H 07/02/22 21:05 Urine Bilirubin COLOR INTERFERENCE (NEGATIVE) 07/02/22 21:05 Urine Urobilinogen E.U./dL (NORMAL) 07/02/22 21:05 Ur Leukocyte Esterase SMALL (NEGATIVE) H 07/02/22 21:05 Urine RBC 6-10 /HPF (0-5) H 07/02/22 21:05 Urine WBC 11-25 /HPF (0-5) H 07/02/22 21:05 Ur Squamous Epith Cells FEW Squamous (<= Few) 07/02/22 21:05 Urine Bacteria Few /HPF (None Seen) 07/02/22 21:05 Urine Mucus Marked Strands 07/02/22 21:05 Ur Microscopic Review INDICATED 07/02/22 21:05 Urine Culture Comments INDICATED 07/02/22 21:05 Urine HCG, Qual NEGATIVE 07/02/22 21:05 Urine Opiates Screen NEGATIVE (NEGATIVE) 07/02/22 09:05 Ur Oxycodone Screen NEGATIVE (NEGATIVE) 07/02/22 09:05 Urine Methadone Screen NEGATIVE (NEGATIVE) 07/02/22 09:05 Ur Propoxyphene Screen NEGATIVE (NEGATIVE) 07/02/22 09:05 Ur Barbiturates Screen NEGATIVE (NEGATIVE) 07/02/22 09:05 Ur Tricyclics Screen NEGATIVE (NEGATIVE) 07/02/22 09:05 Ur Phencyclidine Scrn NEGATIVE (NEGATIVE) 07/02/22 09:05 Ur Amphetamine Screen NEGATIVE (NEGATIVE) 07/02/22 09:05 U Methamphetamines Scrn NEGATIVE (NEGATIVE) 07/02/22 09:05 U Benzodiazepines Scrn POSITIVE (NEGATIVE) H 07/02/22 09:05 Urine Cocaine Screen NEGATIVE (NEGATIVE) 07/02/22 09:05 U Cannabinoids Screen NEGATIVE (NEGATIVE) 07/02/22 09:05 Ethyl Alcohol < 5.0 mg/dL 07/02/22 13:18 - Procedures Procedures: Procedures INSERTION OF ENDOTRACHEAL AIRWAY INTO TRACHEA, VIA OPENING (08/18/20) INSERTION OF INFUSION DEV INTO SUP VENA CAVA, PERC APPROACH (08/18/20) PERFORMANCE OF CARDIAC OUTPUT, SINGLE, MANUAL (08/18/20) RESPIRATORY VENTILATION, LESS THAN 24 CONSECUTIVE HOURS (08/18/20) ABX Reporting Has patient been on IV antibiotics over the past 48 hours?: No Current Medications - Current Medications Current Medications: Active Medications Generic Name Dose Route Start Last Admin Trade Name Freq PRN Reason Stop Dose Admin Acetaminophen 650 mg 07/02/22 14:23 07/03/22 08:34 Acetaminophen 325 Mg Tablet PO 650 mg Q4HR PRN Administration Pain 1 to 4, or Fever Chlordiazepoxide HCl 25 mg 07/04/22 09:00 07/04/22 14:54 Chlordiazepoxide 25 Mg Capsule PO 25 mg Q6HR MARIA C Administration Gabapentin 100 mg 07/04/22 09:00 07/04/22 14:55 Gabapentin 100 Mg Capsule PO 100 mg TID MARIA C Administration Ceftriaxone Sodium 1 gm/ 100 mls @ 200 mls/hr 07/02/22 19:00 07/04/22 15:48 Sodium Chloride IV 07/06/22 09:29 Infused DAILY MARIA C Infusion Sodium Chloride 1,000 mls @ 83.333 mls/hr 07/04/22 15:00 07/04/22 15:12 Normal Saline 0.9% IV 83.333 mls/hr .Q12H MARIA C Administration Lorazepam 2 mg 07/04/22 09:21 07/04/22 16:37 Lorazepam 2 Mg/Ml Vial IVP 2 mg Q30M PRN Administration CIWA >8 Protocol Methylprednisolone 40 mg 07/03/22 09:00 07/04/22 09:45 Methylprednisolone Succinate 40 Mg/Ml Vial IVP 40 mg DAILY MARIA C Administration Ondansetron HCl 4 mg 07/02/22 14:23 Ondansetron Odt 4 Mg Tablet TL Q6HR PRN Nausea / Vomiting Ondansetron HCl 4 mg 07/02/22 14:23 Ondansetron 4 Mg/2 Ml Vial IVP Q6HR PRN Nausea / Vomiting Pantoprazole Sodium 40 mg 07/04/22 07:00 07/04/22 06:08 Pantoprazole 40 Mg Tablet PO 40 mg QDAC MARIA C Administration Multivit/Folic Acid/Iron 1 tab 07/02/22 18:04 07/04/22 09:20 Vitamin Tablet PO Not Given DAILY MARIA C Saccharomyces Boulardii 250 mg 07/03/22 08:00 07/04/22 17:16 Saccharomyces Boulardii 250 Mg Capsule PO Not Given BIDWM MARIA C Sodium Chloride 10 ml 07/02/22 14:23 07/02/22 20:47 Sodium Chloride Flush 0.9% 10 Ml Syringe IVP 10 ml PRN PRN Administration NEEDED PER PROVIDER ORDERS Sodium Chloride 10 ml 07/02/22 17:00 07/04/22 17:16 Sodium Chloride Flush 0.9% 10 Ml Syringe IVP 10 ml 0100,0900,1700 MARIA C Administration Thiamine HCl 100 mg 07/02/22 18:04 07/04/22 09:20 Thiamine 100 Mg Tablet PO Not Given DAILY MARIA C No Known Home Medications 07/02/22
[2022-07-04 18:07] LABS: CALCIUM, IONIZED 1.12 mmol/L (1.15-1.33); VBG PH 7.415 (7.31-7.41)
[2022-07-04 18:18] LABS: PHOSPHORUS 2.4 mg/dL (2.5-4.6); POTASSIUM 3.8 mmol/L (3.5-5.0)
[2022-07-05] MEDS: chlordiazePOXIDE 25 MG CAPSULE PO SCH ×5 (00:15→23:01)
[2022-07-05] MEDS: LORazepam 2 MG/ML VIAL IVP PRN ×6 (00:20→21:21)
[2022-07-05] MEDS: SODIUM CHLORIDE FLUSH 0.9% 10 ML SYRINGE IVP SCH ×3 (00:36→15:48)
[2022-07-05] MEDS: SODIUM CHLORIDE 0.9% 1,000 ML IV SCH ×2 (02:30→15:43)
[2022-07-05] MEDS: GABAPENTIN 100 MG CAPSULE PO SCH ×3 (06:13→21:21)
[2022-07-05] MEDS: PANTOPRAZOLE 40 MG TABLET PO SCH (06:13)
[2022-07-05 06:35] LABS: CALCIUM, IONIZED 1.14 mmol/L (1.15-1.33); VBG PH 7.381 (7.31-7.41)
[2022-07-05 06:36] LABS: BASOPHILS % (AUTO) 0.5 %; HCT - HEMATOCRIT 33.2 % (37.0-47.0); HGB - HEMOGLOBIN 10.4 g/dL (12.0-16.0); LYMPHOCYTES % (AUTO) 24.5 %; MEAN CORPUSCULAR HEMOGLOBIN 33.9 pg (27.0-31.0); MEAN CORPUSCULAR HGB CONC 31.3 g/dL (32.0-36.0); MEAN CORPUSCULAR VOLUME 108.1 fL (81.0-99.0); MEAN PLATELET VOLUME 12.6 fL (7.9-10.8); MONOCYTES # (AUTO) 0.4 10^3/uL (0.0-1.0); MONOCYTES % (AUTO) 8.7 %; NEUTROPHILS # (AUTO) 2.7 10^3/uL (1.5-6.6); NEUTROPHILS % (AUTO) 65.1 %; PLT - PLATELET COUNT 71 10^3/uL (130-450); RED BLOOD COUNT 3.07 10^6/uL (4.20-5.40); RED CELL DISTRIBUTION WIDTH 15.9 % (12.0-15.0); WHITE BLOOD COUNT 4.1 x10^3/uL (4.8-10.8)
[2022-07-05 06:47] LABS: ALBUMIN 2.8 g/dL (3.2-5.5); ALBUMIN/GLOBULIN RATIO 0.5 (1.0-2.2); BILIRUBIN,TOTAL 3.4 mg/dL (0.2-1.0); CALCIUM 8.3 mg/dL (8.5-10.3); CREATININE 0.4 mg/dL (0.4-1.0); POTASSIUM 3.9 mmol/L (3.5-5.0); TOTAL PROTEIN 7.9 g/dL (6.7-8.2)
[2022-07-05 07:03] LABS: MAGNESIUM 2.1 mg/dL (1.7-2.8); PHOSPHORUS 2.5 mg/dL (2.5-4.6)
[2022-07-05] MEDS: SACCHAROMYCES BOULARDII 250 MG CAPSULE PO SCH ×2 (07:58→16:32)
[2022-07-05] MEDS ORDERED: POTASSIUM CHLORIDE 20 MEQ TABLET PO ONE (08:00)
[2022-07-05] MEDS: PRENATAL VITAMIN TABLET PO SCH (08:00)
[2022-07-05] MEDS: THIAMINE 100 MG TABLET PO SCH (08:02)
[2022-07-05] MEDS: methylPREDNISolone SUCCINATE 40 MG/ML VIAL IVP SCH (08:03)
--- NOTE | 2022-07-05 17:29 | PROVIDER PROGRESS NOTE ---
Assessment/Plan - Problem List (1) Alcohol withdrawal Qualifiers: Complication of substance-induced condition: uncomplicated Qualified Code(s): F10.930 - Alcohol use, unspecified with withdrawal, uncomplicated Assessment/Plan: Improving. More alert today. AAO x 3 Cont CIWA protocol (2) Alcoholic hepatitis Qualifiers: Assessment/Plan: Patient with presenting Maddrey score of 38, warranting steroid therapy Continue prednisone 40 mg IV daily until d/c Continue Protonix Ultrasound does show liver cirrhosis with portal hypertension without a solid mass Mainstay is steroids, supportive care, and outpatient hepatology referral (3) Thrombocytopenia Assessment/Plan: 2/2 to Alcoholic liver disease Platelets improved at 71 today No evidence of bleeding Continue to monitor (4) Hypokalemia Assessment/Plan: Resolved (5) Pneumonia Qualifiers: Pneumonia type: due to unspecified organism Laterality: right Lung location: middle lobe of lung Qualified Code(s): J18.9 - Pneumonia, unspecified organism Assessment/Plan: Stable on room air Continue current azithromycin and Rocephin - Current Meds Current Meds: Current Medications Generic Name Dose Route Start Last Admin Trade Name Freq PRN Reason Stop Dose Admin Acetaminophen 650 mg 07/02/22 14:23 07/03/22 08:34 Acetaminophen 325 Mg Tablet PO 650 mg Q4HR PRN Administration Pain 1 to 4, or Fever Chlordiazepoxide HCl 25 mg 07/04/22 09:00 07/05/22 12:23 Chlordiazepoxide 25 Mg Capsule PO 25 mg Q6HR MARIA C Administration Gabapentin 100 mg 07/04/22 09:00 07/05/22 14:43 Gabapentin 100 Mg Capsule PO 100 mg TID MARIA C Administration Ceftriaxone Sodium 1 gm/ 100 mls @ 200 mls/hr 07/02/22 19:00 07/04/22 15:48 Sodium Chloride IV 07/06/22 09:29 Infused DAILY MARIA C Infusion Sodium Chloride 1,000 mls @ 83.333 mls/hr 07/04/22 15:00 07/05/22 15:43 Normal Saline 0.9% IV 83.3 mls/hr .Q12H MARIA C Administration Lorazepam 2 mg 07/04/22 09:21 07/05/22 08:39 Lorazepam 2 Mg/Ml Vial IVP 2 mg Q30M PRN Administration CIWA >8 Protocol Methylprednisolone 40 mg 07/03/22 09:00 07/05/22 08:03 Methylprednisolone Succinate 40 Mg/Ml Vial IVP 40 mg DAILY MARIA C Administration Pantoprazole Sodium 40 mg 07/04/22 07:00 07/05/22 06:13 Pantoprazole 40 Mg Tablet PO 40 mg QDAC MARIA C Administration Multivit/Folic Acid/Iron 1 tab 07/02/22 18:04 07/05/22 08:00 Vitamin Tablet PO 1 tab DAILY MARIA C Administration Saccharomyces Boulardii 250 mg 07/03/22 08:00 07/05/22 16:32 Saccharomyces Boulardii 250 Mg Capsule PO 250 mg BIDWM MARIA C Administration Sodium Chloride 10 ml 07/02/22 14:23 07/02/22 20:47 Sodium Chloride Flush 0.9% 10 Ml Syringe IVP 10 ml PRN PRN Administration NEEDED PER PROVIDER ORDERS Sodium Chloride 10 ml 07/02/22 17:00 07/05/22 15:48 Sodium Chloride Flush 0.9% 10 Ml Syringe IVP 10 ml 0100,0900,1700 MARIA C Administration Thiamine HCl 100 mg 07/02/22 18:04 07/05/22 08:02 Thiamine 100 Mg Tablet PO 100 mg DAILY MARIA C Administration - Lab Result Lab results reviewed: Yes Fish Bone Diagrams: 07/05/22 06:27 07/05/22 12:37 - Additional Planning Condition/Complexity: Improved My Orders: My Active Orders 07/06/22 05:00 CALCIUM, IONIZED ([facility]) [BG] DAILYLAB MAGNESIUM [CHEM] DAILYLAB PHOSPHORUS [CHEM] DAILYLAB 07/07/22 05:00 CALCIUM, IONIZED ([facility]) [BG] DAILYLAB MAGNESIUM [CHEM] DAILYLAB PHOSPHORUS [CHEM] DAILYLAB Subjective - Subjective Patient Reports: Feeling Better Objective Vital Signs: Vital Signs - 24 hr 07/04/22 07/04/22 07/04/22 20:00 20:53 21:00 Temperature 37 C Heart Rate [ 84 84 Brachial] Heart Rate [ Monitoring electrodes] Respiratory 31 H 28 H 34 H Rate Blood Pressure 121/71 126/81 H [Left Brachial artery] O2 Saturation 94 98 99 If not protocol 2 2 : Oxygen Flow, liters/minute 07/04/22 07/04/22 07/05/22 22:00 23:00 00:00 Temperature Heart Rate [ 77 75 88 Brachial] Heart Rate [ Monitoring electrodes] Respiratory 31 H 31 H 42 H Rate Blood Pressure 117/78 123/76 122/83 H [Left Brachial artery] O2 Saturation 99 99 100 If not protocol 2 2 2 : Oxygen Flow, liters/minute 07/05/22 07/05/22 07/05/22 00:36 01:00 02:00 Temperature 37.0 C Heart Rate [ 89 84 Brachial] Heart Rate [ Monitoring electrodes] Respiratory 31 H 26 H Rate Blood Pressure 130/88 H 136/95 H [Left Brachial artery] O2 Saturation 100 99 If not protocol 2 : Oxygen Flow, liters/minute 07/05/22 07/05/22 07/05/22 03:00 04:00 05:00 Temperature Heart Rate [ 77 Brachial] Heart Rate [ 76 71 Monitoring electrodes] Respiratory 35 H 32 H 29 H Rate Blood Pressure 120/85 H 120/77 120/80 [Left Brachial artery] O2 Saturation 93 94 96 If not protocol : Oxygen Flow, liters/minute 07/05/22 07/05/22 07/05/22 06:00 07:00 08:00 Temperature 36.9 C 37.0 C Heart Rate [ Brachial] Heart Rate [ 71 87 82 Monitoring electrodes] Respiratory 25 H 35 H 30 H Rate Blood Pressure 115/77 133/93 H 133/93 H [Left Brachial artery] O2 Saturation 95 98 100 If not protocol : Oxygen Flow, liters/minute 07/05/22 07/05/22 07/05/22 09:00 10:00 11:00 Temperature 36.8 C Heart Rate [ Brachial] Heart Rate [ 77 76 77 Monitoring electrodes] Respiratory 30 H 36 H 25 H Rate Blood Pressure 120/81 H 128/80 123/78 [Left Brachial artery] O2 Saturation 98 98 100 If not protocol : Oxygen Flow, liters/minute 07/05/22 07/05/22 07/05/22 12:00 12:42 14:00 Temperature 36.8 C Heart Rate [ Brachial] Heart Rate [ 100 105 H 96 Monitoring electrodes] Respiratory 24 41 H 44 H Rate Blood Pressure 125/83 H 125/83 H 112/69 [Left Brachial artery] O2 Saturation 97 96 94 If not protocol : Oxygen Flow, liters/minute 07/05/22 07/05/22 07/05/22 15:00 16:00 17:00 Temperature Heart Rate [ Brachial] Heart Rate [ 90 96 103 H Monitoring electrodes] Respiratory 28 H 30 H 21 Rate Blood Pressure 122/78 118/75 118/75 [Left Brachial artery] O2 Saturation 96 98 95 If not protocol : Oxygen Flow, liters/minute Oxygen O2 Source Room air I&O (Last 24 Hrs): Intake and Output Totals x24h 07/03/22 07/04/22 07/05/22 23:59 23:59 23:59 Intake Total 3340 0880.733 4366.550 Output Total 1400 1550 Balance 3340 -100.135 471.550 General: Alert, Oriented x3 HEENT: Atraumatic Neuro: Alert, CN 2-12 Grossly Intact, Other (Mildly tremulous) Cardiovascular: Regular rate, Normal S1, Normal S2 Respiratory: Chest non-tender, No respiratory distress, Breath sounds nml Abdomen: Normal bowel sounds, Soft, No tenderness, No hepatospenomegaly Extremities: No clubbing, No cyanosis, No edema Skin: No rashes (Jaundice) - Results Results: Laboratory Results WBC 4.1 x10^3/uL (4.8-10.8) L 07/05/22 06:27 RBC 3.07 10^6/uL (4.20-5.40) L 07/05/22 06:27 Hgb 10.4 g/dL (12.0-16.0) L 07/05/22 06:27 Hct 33.2 % (37.0-47.0) L 07/05/22 06:27 MCV 108.1 fL (81.0-99.0) H 07/05/22 06:27 MCH 33.9 pg (27.0-31.0) H 07/05/22 06:27 MCHC 31.3 g/dL (32.0-36.0) L 07/05/22 06:27 RDW 15.9 % (12.0-15.0) H 07/05/22 06:27 Plt Count 71 10^3/uL (130-450) L 07/05/22 06:27 MPV 12.6 fL (7.9-10.8) H 07/05/22 06:27 Neut # (Auto) 2.7 10^3/uL (1.5-6.6) 07/05/22 06:27 Lymph # (Auto) 1.0 10^3/uL (1.5-3.5) L 07/05/22 06:27 [place] # (Auto) 0.4 10^3/uL (0.0-1.0) 07/05/22 06:27 Eos # (Auto) 0.0 10^3/uL (0.0-0.7) 07/05/22 06:27 Baso # (Auto) 0.0 10^3/uL (0.0-0.1) 07/05/22 06:27 Absolute Nucleated RBC 0.00 x10^3/uL 07/05/22 06:27 Total Counted 100 07/03/22 05:00 Band Neuts % (Manual) 2 % (0-10) 07/03/22 05:00 Abnorm Lymph % (Manual) 0 % 07/03/22 05:00 Nucleated RBC % 0.0 /100WBC 07/05/22 06:27 Neutrophils # (Manual) 5.1 10^3/uL (1.5-6.6) 07/03/22 05:00 Lymphocytes # (Manual) 1.0 10^3/uL (1.5-3.5) L 07/03/22 05:00 Monocytes # (Manual) 0.2 10^3/uL (0.0-1.0) 07/03/22 05:00 Eosinophils # (Manual) 0.0 10^3/uL (0-0.7) 07/03/22 05:00 Basophils # (Manual) 0.0 10^3/uL (0-0.1) 07/03/22 05:00 Differential Comment MANUAL DIFFERENTIAL 07/03/22 05:00 Manual Slide Review Indicated 07/02/22 13:18 WBC Morphology NORMAL APPEARANCE (NORMAL) 07/03/22 05:00 Platelet Estimate DECREASED (<130,000) (NORMAL) 07/03/22 05:00 Platelet Morphology NORMAL APPEARANCE (NORMAL) 07/03/22 05:00 RBC Morph Micro Appear 2+ ANISOCYTOSIS (NORMAL) 07/03/22 05:00 PT 19.9 secs (9.9-12.6) H 07/02/22 13:18 INR 1.8 (0.8-1.2) H 07/02/22 13:18 VBG pH 7.381 (7.31-7.41) 07/05/22 06:27 Ionized Calcium 1.14 mmol/L (1.15-1.33) L 07/05/22 06:27 Sodium 137 mmol/L (135-145) 07/05/22 06:27 Potassium 4.3 mmol/L (3.5-5.0) 07/05/22 12:37 Chloride 108 mmol/L (101-111) 07/05/22 06:27 Carbon Dioxide 23 mmol/L (21-32) 07/05/22 06:27 Anion Gap 6.0 (6-13) 07/05/22 06:27 BUN 12 mg/dL (6-20) 07/05/22 06:27 Creatinine 0.4 mg/dL (0.4-1.0) 07/05/22 06:27 Estimated GFR (MDRD) 185 (>89) 07/05/22 06:27 Glucose 116 mg/dL (70-100) H 07/05/22 06:27 Calcium 8.3 mg/dL (8.5-10.3) L 07/05/22 06:27 Phosphorus 2.5 mg/dL (2.5-4.6) 07/05/22 06:27 Magnesium 2.1 mg/dL (1.7-2.8) 07/05/22 06:27 Total Bilirubin 3.4 mg/dL (0.2-1.0) H 07/05/22 06:27 AST 84 IU/L (10-42) H 07/05/22 06:27 ALT 34 IU/L (10-60) 07/05/22 06:27 Alkaline Phosphatase 54 IU/L (42-121) 07/05/22 06:27 Ammonia 67.5 umol/L (7-35) H 07/05/22 12:37 Total Protein 7.9 g/dL (6.7-8.2) 07/05/22 06:27 Albumin 2.8 g/dL (3.2-5.5) L 07/05/22 06:27 Globulin 5.1 g/dL (2.1-4.2) H 07/05/22 06:27 Albumin/Globulin Ratio 0.5 (1.0-2.2) L 07/05/22 06:27 Lipase 38 U/L (22-51) 07/02/22 13:18 Vitamin B12 463 pg/mL (180-914) 07/03/22 05:00 Folate 9.37 ng/mL (5.90 - >24.8) 07/03/22 05:00 Urine Color ORANGE 07/02/22 21:05 Urine Clarity HAZY (CLEAR) 07/02/22 21:05 Urine pH 6.0 PH (5.0-7.5) 07/02/22 21:05 Ur Specific [place] >=1.030 (1.002-1.030) H 07/02/22 21:05 Urine Protein 100 mg/dL (NEGATIVE) H 07/02/22 21:05 Urine Glucose (UA) NEGATIVE mg/dL (NEGATIVE) 07/02/22 21:05 Urine Ketones TRACE mg/dL (NEGATIVE) 07/02/22 21:05 Urine Occult Blood MODERATE (NEGATIVE) H 07/02/22 21:05 Urine Nitrite POSITIVE (NEGATIVE) H 07/02/22 21:05 Urine Bilirubin COLOR INTERFERENCE (NEGATIVE) 07/02/22 21:05 Urine Urobilinogen E.U./dL (NORMAL) 07/02/22 21:05 Ur Leukocyte Esterase SMALL (NEGATIVE) H 07/02/22 21:05 Urine RBC 6-10 /HPF (0-5) H 07/02/22 21:05 Urine WBC 11-25 /HPF (0-5) H 07/02/22 21:05 Ur Squamous Epith Cells FEW Squamous (<= Few) 07/02/22 21:05 Urine Bacteria Few /HPF (None Seen) 07/02/22 21:05 Urine Mucus Marked Strands 07/02/22 21:05 Ur Microscopic Review INDICATED 07/02/22 21:05 Urine Culture Comments INDICATED 07/02/22 21:05 Urine HCG, Qual NEGATIVE 07/02/22 21:05 Nasal Screen MRSA (PCR) NEGATIVE (NEGATIVE) 07/04/22 13:10 Urine Opiates Screen NEGATIVE (NEGATIVE) 07/02/22 09:05 Ur Oxycodone Screen NEGATIVE (NEGATIVE) 07/02/22 09:05 Urine Methadone Screen NEGATIVE (NEGATIVE) 07/02/22 09:05 Ur Propoxyphene Screen NEGATIVE (NEGATIVE) 07/02/22 09:05 Ur Barbiturates Screen NEGATIVE (NEGATIVE) 07/02/22 09:05 Ur Tricyclics Screen NEGATIVE (NEGATIVE) 07/02/22 09:05 Ur Phencyclidine Scrn NEGATIVE (NEGATIVE) 07/02/22 09:05 Ur Amphetamine Screen NEGATIVE (NEGATIVE) 07/02/22 09:05 U Methamphetamines Scrn NEGATIVE (NEGATIVE) 07/02/22 09:05 U Benzodiazepines Scrn POSITIVE (NEGATIVE) H 07/02/22 09:05 Urine Cocaine Screen NEGATIVE (NEGATIVE) 07/02/22 09:05 U Cannabinoids Screen NEGATIVE (NEGATIVE) 07/02/22 09:05 Ethyl Alcohol < 5.0 mg/dL 07/02/22 13:18 - Procedures Procedures: Procedures INSERTION OF ENDOTRACHEAL AIRWAY INTO TRACHEA, VIA OPENING (08/18/20) INSERTION OF INFUSION DEV INTO SUP VENA CAVA, PERC APPROACH (08/18/20) PERFORMANCE OF CARDIAC OUTPUT, SINGLE, MANUAL (08/18/20) RESPIRATORY VENTILATION, LESS THAN 24 CONSECUTIVE HOURS (08/18/20) ABX Reporting Has patient been on IV antibiotics over the past 48 hours?: No
[2022-07-06] MEDS: SODIUM CHLORIDE FLUSH 0.9% 10 ML SYRINGE IVP SCH ×3 (01:09→17:16)
[2022-07-06] MEDS: SODIUM CHLORIDE 0.9% 1,000 ML IV SCH (03:33)
[2022-07-06 05:57] LABS: CALCIUM, IONIZED 1.12 mmol/L (1.15-1.33); VBG PH 7.438 (7.31-7.41)
[2022-07-06] MEDS: PANTOPRAZOLE 40 MG TABLET PO SCH (06:03)
[2022-07-06] MEDS: GABAPENTIN 100 MG CAPSULE PO SCH ×3 (06:03→22:17)
[2022-07-06] MEDS: chlordiazePOXIDE 25 MG CAPSULE PO SCH ×3 (06:03→22:17)
[2022-07-06 06:06] LABS: BASOPHILS % (AUTO) 0.6 %; EOSINOPHILS % (AUTO) 0.4 %; HCT - HEMATOCRIT 31.3 % (37.0-47.0); HGB - HEMOGLOBIN 9.8 g/dL (12.0-16.0); LYMPHOCYTES # (AUTO) 1.4 10^3/uL (1.5-3.5); LYMPHOCYTES % (AUTO) 29.2 %; MEAN CORPUSCULAR HEMOGLOBIN 33.7 pg (27.0-31.0); MEAN CORPUSCULAR HGB CONC 31.3 g/dL (32.0-36.0); MEAN CORPUSCULAR VOLUME 107.6 fL (81.0-99.0); MEAN PLATELET VOLUME 12.8 fL (7.9-10.8); MONOCYTES # (AUTO) 0.5 10^3/uL (0.0-1.0); MONOCYTES % (AUTO) 10.6 %; NEUTROPHILS # (AUTO) 2.8 10^3/uL (1.5-6.6); NEUTROPHILS % (AUTO) 56.9 %; PLT - PLATELET COUNT 91 10^3/uL (130-450); RED BLOOD COUNT 2.91 10^6/uL (4.20-5.40); RED CELL DISTRIBUTION WIDTH 15.5 % (12.0-15.0); WHITE BLOOD COUNT 4.8 x10^3/uL (4.8-10.8)
[2022-07-06 06:08] LABS: ALBUMIN 2.5 g/dL (3.2-5.5); ALBUMIN/GLOBULIN RATIO 0.6 (1.0-2.2); BILIRUBIN,TOTAL 2.8 mg/dL (0.2-1.0); CALCIUM 8.3 mg/dL (8.5-10.3); CREATININE 0.4 mg/dL (0.4-1.0); MAGNESIUM 1.7 mg/dL (1.7-2.8); PHOSPHORUS 2.9 mg/dL (2.5-4.6); POTASSIUM 3.4 mmol/L (3.5-5.0)
[2022-07-06] MEDS ORDERED: MAGNESIUM OXIDE 400 MG TABLET PO ONE ×3 (06:20→09:00)
[2022-07-06] MEDS: POTASSIUM CHLORIDE 20 MEQ TABLET PO SCH ×2 (08:16→12:00)
[2022-07-06] MEDS: PRENATAL VITAMIN TABLET PO SCH (08:16)
[2022-07-06] MEDS: SACCHAROMYCES BOULARDII 250 MG CAPSULE PO SCH ×2 (08:16→17:16)
[2022-07-06] MEDS: THIAMINE 100 MG TABLET PO SCH (08:16)
[2022-07-06] MEDS: methylPREDNISolone SUCCINATE 40 MG/ML VIAL IVP SCH (08:20)
[2022-07-06] MEDS: cefTRIAXone 1 GM in SODIUM CHLORIDE 0.9% MINIBAG 100 ML IV SCH (08:24)
--- NOTE | 2022-07-06 15:57 | PROVIDER PROGRESS NOTE ---
Assessment/Plan - Problem List (1) Alcohol withdrawal Qualifiers: Complication of substance-induced condition: uncomplicated Qualified Code(s): F10.930 - Alcohol use, unspecified with withdrawal, uncomplicated Assessment/Plan: Much improved De-escalate Librium to 3 times daily Anticipate possible discharge tomorrow (2) Alcoholic hepatitis Qualifiers: Assessment/Plan: Patient with presenting Maddrey score of 38, warranting steroid therapy Switch methylprednisone to prednisone p.o. Continue Protonix Ultrasound does show liver cirrhosis with portal hypertension without a solid mass Mainstay is steroids, supportive care, and outpatient hepatology referral (3) Thrombocytopenia Assessment/Plan: 2/ to Alcoholic liver disease Platelets improved at 91 today No evidence of bleeding Continue to monitor (4) Pneumonia Qualifiers: Pneumonia type: due to unspecified organism Laterality: right Lung location: middle lobe of lung Qualified Code(s): J18.9 - Pneumonia, unspecified organism Assessment/Plan: Resolved - Current Meds Current Meds: Current Medications Generic Name Dose Route Start Last Admin Trade Name Freq PRN Reason Stop Dose Admin Acetaminophen 650 mg 07/02/22 14:23 07/03/22 08:34 Acetaminophen 325 Mg Tablet PO 650 mg Q4HR PRN Administration Pain 1 to 4, or Fever Chlordiazepoxide HCl 25 mg 07/04/22 09:00 07/06/22 12:19 Chlordiazepoxide 25 Mg Capsule PO Not Given Q6HR MARIA C Gabapentin 100 mg 07/04/22 09:00 07/06/22 14:13 Gabapentin 100 Mg Capsule PO Not Given TID MARIA C Lorazepam 2 mg 07/04/22 09:21 07/05/22 21:21 Lorazepam 2 Mg/Ml Vial IVP 2 mg Q30M PRN Administration CIWA >8 Protocol Pantoprazole Sodium 40 mg 07/04/22 07:00 07/06/22 06:03 Pantoprazole 40 Mg Tablet PO 40 mg QDAC MARIA C Administration Multivit/Folic Acid/Iron 1 tab 07/02/22 18:04 07/06/22 08:16 Vitamin Tablet PO 1 tab DAILY MARIA C Administration Saccharomyces Boulardii 250 mg 07/03/22 08:00 07/06/22 08:16 Saccharomyces Boulardii 250 Mg Capsule PO 250 mg BIDWM MARIA C Administration Sodium Chloride 10 ml 07/02/22 14:23 07/02/22 20:47 Sodium Chloride Flush 0.9% 10 Ml Syringe IVP 10 ml PRN PRN Administration NEEDED PER PROVIDER ORDERS Sodium Chloride 10 ml 07/02/22 17:00 07/06/22 09:00 Sodium Chloride Flush 0.9% 10 Ml Syringe IVP Not Given 0100,0900,1700 MARIA C Thiamine HCl 100 mg 07/02/22 18:04 07/06/22 08:16 Thiamine 100 Mg Tablet PO 100 mg DAILY MARIA C Administration - Lab Result Lab results reviewed: Yes Fish Bone Diagrams: 07/06/22 05:49 07/06/22 05:49 - Additional Planning My Orders: My Active Orders 07/07/22 05:00 CALCIUM, IONIZED ([facility]) [BG] DAILYLAB MAGNESIUM [CHEM] DAILYLAB PHOSPHORUS [CHEM] DAILYLAB 07/07/22 08:00 predniSONE [Deltasone] 40 mg PO DAILYWM Objective Vital Signs: Vital Signs - 24 hr 07/05/22 07/05/22 07/05/22 16:00 17:00 18:00 Temperature Heart Rate [ 96 103 H 100 Monitoring electrodes] Respiratory 30 H 21 54 H Rate Blood Pressure 118/75 118/75 129/77 [Left Brachial artery] O2 Saturation 98 95 95 07/05/22 07/05/22 07/05/22 19:00 19:25 20:00 Temperature 37.1 C Heart Rate [ 94 98 Monitoring electrodes] Respiratory 23 28 H Rate Blood Pressure 133/73 H 134/89 H [Left Brachial artery] O2 Saturation 94 07/05/22 07/05/22 07/05/22 21:00 22:00 23:00 Temperature Heart Rate [ 90 101 H 94 Monitoring electrodes] Respiratory 34 H 25 H 22 Rate Blood Pressure 136/86 H 142/85 H 140/100 H [Left Brachial artery] O2 Saturation 96 97 96 07/06/22 07/06/22 07/06/22 00:00 01:00 02:00 Temperature Heart Rate [ 93 88 80 Monitoring electrodes] Respiratory 35 H 29 H 32 H Rate Blood Pressure 160/104 H 137/89 H 130/82 H [Left Brachial artery] O2 Saturation 96 92 96 07/06/22 07/06/22 07/06/22 03:00 04:00 05:00 Temperature Heart Rate [ 75 74 76 Monitoring electrodes] Respiratory 29 H 25 H 29 H Rate Blood Pressure 131/84 H 121/86 H 129/87 H [Left Brachial artery] O2 Saturation 93 94 93 07/06/22 07/06/22 07/06/22 06:00 07:00 08:00 Temperature 36.7 C Heart Rate [ 84 77 90 Monitoring electrodes] Respiratory 25 H 37 H 40 H Rate Blood Pressure 140/82 H 140/95 H [Left Brachial artery] O2 Saturation 94 07/06/22 07/06/22 07/06/22 09:00 09:41 12:00 Temperature 37.0 C 36.9 C Heart Rate [ 89 88 Monitoring electrodes] Respiratory 17 26 H Rate Blood Pressure 137/90 H 133/75 H [Left Brachial artery] O2 Saturation 97 96 Oxygen O2 Source Room air I&O (Last 24 Hrs): Intake and Output Totals x24h 07/04/22 07/05/22 07/06/22 23:59 23:59 23:59 Intake Total 6627.618 5432.252 1826.863 Output Total 1400 2850 1200 Balance -100.135 18.252 626.863 - Results Results: Laboratory Results WBC 4.8 x10^3/uL (4.8-10.8) 07/06/22 05:49 RBC 2.91 10^6/uL (4.20-5.40) L 07/06/22 05:49 Hgb 9.8 g/dL (12.0-16.0) L 07/06/22 05:49 Hct 31.3 % (37.0-47.0) L 07/06/22 05:49 MCV 107.6 fL (81.0-99.0) H 07/06/22 05:49 MCH 33.7 pg (27.0-31.0) H 07/06/22 05:49 MCHC 31.3 g/dL (32.0-36.0) L 07/06/22 05:49 RDW 15.5 % (12.0-15.0) H 07/06/22 05:49 Plt Count 91 10^3/uL (130-450) L 07/06/22 05:49 MPV 12.8 fL (7.9-10.8) H 07/06/22 05:49 Neut # (Auto) 2.8 10^3/uL (1.5-6.6) 07/06/22 05:49 Lymph # (Auto) 1.4 10^3/uL (1.5-3.5) L 07/06/22 05:49 [place] # (Auto) 0.5 10^3/uL (0.0-1.0) 07/06/22 05:49 Eos # (Auto) 0.0 10^3/uL (0.0-0.7) 07/06/22 05:49 Baso # (Auto) 0.0 10^3/uL (0.0-0.1) 07/06/22 05:49 Absolute Nucleated RBC 0.00 x10^3/uL 07/06/22 05:49 Total Counted 100 07/03/22 05:00 Band Neuts % (Manual) 2 % (0-10) 07/03/22 05:00 Abnorm Lymph % (Manual) 0 % 07/03/22 05:00 Nucleated RBC % 0.0 /100WBC 07/06/22 05:49 Neutrophils # (Manual) 5.1 10^3/uL (1.5-6.6) 07/03/22 05:00 Lymphocytes # (Manual) 1.0 10^3/uL (1.5-3.5) L 07/03/22 05:00 Monocytes # (Manual) 0.2 10^3/uL (0.0-1.0) 07/03/22 05:00 Eosinophils # (Manual) 0.0 10^3/uL (0-0.7) 07/03/22 05:00 Basophils # (Manual) 0.0 10^3/uL (0-0.1) 07/03/22 05:00 Differential Comment MANUAL DIFFERENTIAL 07/03/22 05:00 Manual Slide Review Indicated 07/02/22 13:18 WBC Morphology NORMAL APPEARANCE (NORMAL) 07/03/22 05:00 Platelet Estimate DECREASED (<130,000) (NORMAL) 07/03/22 05:00 Platelet Morphology NORMAL APPEARANCE (NORMAL) 07/03/22 05:00 RBC Morph Micro Appear 2+ ANISOCYTOSIS (NORMAL) 07/03/22 05:00 PT 19.9 secs (9.9-12.6) H 07/02/22 13:18 INR 1.8 (0.8-1.2) H 07/02/22 13:18 VBG pH 7.438 (7.31-7.41) H 07/06/22 05:49 Ionized Calcium 1.12 mmol/L (1.15-1.33) L 07/06/22 05:49 Sodium 137 mmol/L (135-145) 07/06/22 05:49 Potassium 3.4 mmol/L (3.5-5.0) L 07/06/22 05:49 Chloride 107 mmol/L (101-111) 07/06/22 05:49 Carbon Dioxide 25 mmol/L (21-32) 07/06/22 05:49 Anion Gap 5.0 (6-13) L 07/06/22 05:49 BUN 10 mg/dL (6-20) 07/06/22 05:49 Creatinine 0.4 mg/dL (0.4-1.0) 07/06/22 05:49 Estimated GFR (MDRD) 185 (>89) 07/06/22 05:49 Glucose 118 mg/dL (70-100) H 07/06/22 05:49 Calcium 8.3 mg/dL (8.5-10.3) L 07/06/22 05:49 Phosphorus 2.9 mg/dL (2.5-4.6) 07/06/22 05:49 Magnesium 1.7 mg/dL (1.7-2.8) 07/06/22 05:49 Total Bilirubin 2.8 mg/dL (0.2-1.0) H 07/06/22 05:49 AST 73 IU/L (10-42) H 07/06/22 05:49 ALT 36 IU/L (10-60) 07/06/22 05:49 Alkaline Phosphatase 50 IU/L (42-121) 07/06/22 05:49 Ammonia 67.5 umol/L (7-35) H 07/05/22 12:37 Total Protein 7.0 g/dL (6.7-8.2) 07/06/22 05:49 Albumin 2.5 g/dL (3.2-5.5) L 07/06/22 05:49 Globulin 4.5 g/dL (2.1-4.2) H 07/06/22 05:49 Albumin/Globulin Ratio 0.6 (1.0-2.2) L 07/06/22 05:49 Lipase 38 U/L (22-51) 07/02/22 13:18 Vitamin B12 463 pg/mL (180-914) 07/03/22 05:00 Folate 9.37 ng/mL (5.90 - >24.8) 07/03/22 05:00 Urine Color ORANGE 07/02/22 21:05 Urine Clarity HAZY (CLEAR) 07/02/22 21:05 Urine pH 6.0 PH (5.0-7.5) 07/02/22 21:05 Ur Specific [place] >=1.030 (1.002-1.030) H 07/02/22 21:05 Urine Protein 100 mg/dL (NEGATIVE) H 07/02/22 21:05 Urine Glucose (UA) NEGATIVE mg/dL (NEGATIVE) 07/02/22 21:05 Urine Ketones TRACE mg/dL (NEGATIVE) 07/02/22 21:05 Urine Occult Blood MODERATE (NEGATIVE) H 07/02/22 21:05 Urine Nitrite POSITIVE (NEGATIVE) H 07/02/22 21:05 Urine Bilirubin COLOR INTERFERENCE (NEGATIVE) 07/02/22 21:05 Urine Urobilinogen E.U./dL (NORMAL) 07/02/22 21:05 Ur Leukocyte Esterase SMALL (NEGATIVE) H 07/02/22 21:05 Urine RBC 6-10 /HPF (0-5) H 07/02/22 21:05 Urine WBC 11-25 /HPF (0-5) H 07/02/22 21:05 Ur Squamous Epith Cells FEW Squamous (<= Few) 07/02/22 21:05 Urine Bacteria Few /HPF (None Seen) 07/02/22 21:05 Urine Mucus Marked Strands 07/02/22 21:05 Ur Microscopic Review INDICATED 07/02/22 21:05 Urine Culture Comments INDICATED 07/02/22 21:05 Urine HCG, Qual NEGATIVE 07/02/22 21:05 Nasal Screen MRSA (PCR) NEGATIVE (NEGATIVE) 07/04/22 13:10 Urine Opiates Screen NEGATIVE (NEGATIVE) 07/02/22 09:05 Ur Oxycodone Screen NEGATIVE (NEGATIVE) 07/02/22 09:05 Urine Methadone Screen NEGATIVE (NEGATIVE) 07/02/22 09:05 Ur Propoxyphene Screen NEGATIVE (NEGATIVE) 07/02/22 09:05 Ur Barbiturates Screen NEGATIVE (NEGATIVE) 07/02/22 09:05 Ur Tricyclics Screen NEGATIVE (NEGATIVE) 07/02/22 09:05 Ur Phencyclidine Scrn NEGATIVE (NEGATIVE) 07/02/22 09:05 Ur Amphetamine Screen NEGATIVE (NEGATIVE) 07/02/22 09:05 U Methamphetamines Scrn NEGATIVE (NEGATIVE) 07/02/22 09:05 U Benzodiazepines Scrn POSITIVE (NEGATIVE) H 07/02/22 09:05 Urine Cocaine Screen NEGATIVE (NEGATIVE) 07/02/22 09:05 U Cannabinoids Screen NEGATIVE (NEGATIVE) 07/02/22 09:05 Ethyl Alcohol < 5.0 mg/dL 07/02/22 13:18 - Procedures Procedures: Procedures INSERTION OF ENDOTRACHEAL AIRWAY INTO TRACHEA, VIA OPENING (08/18/20) INSERTION OF INFUSION DEV INTO SUP VENA CAVA, PERC APPROACH (08/18/20) PERFORMANCE OF CARDIAC OUTPUT, SINGLE, MANUAL (08/18/20) RESPIRATORY VENTILATION, LESS THAN 24 CONSECUTIVE HOURS (08/18/20) ABX Reporting Has patient been on IV antibiotics over the past 48 hours?: No
[2022-07-07 05:32] LABS: BASOPHILS % (AUTO) 0.5 %; EOSINOPHILS % (AUTO) 0.6 %; HCT - HEMATOCRIT 34.1 % (37.0-47.0); HGB - HEMOGLOBIN 11.4 g/dL (12.0-16.0); LYMPHOCYTES # (AUTO) 1.7 10^3/uL (1.5-3.5); LYMPHOCYTES % (AUTO) 26.3 %; MEAN CORPUSCULAR HEMOGLOBIN 35.3 pg (27.0-31.0); MEAN CORPUSCULAR HGB CONC 33.4 g/dL (32.0-36.0); MEAN CORPUSCULAR VOLUME 105.6 fL (81.0-99.0); MEAN PLATELET VOLUME 12.1 fL (7.9-10.8); MONOCYTES # (AUTO) 0.7 10^3/uL (0.0-1.0); MONOCYTES % (AUTO) 10.8 %; NEUTROPHILS # (AUTO) 3.8 10^3/uL (1.5-6.6); NEUTROPHILS % (AUTO) 58.6 %; PLT - PLATELET COUNT 154 10^3/uL (130-450); RED BLOOD COUNT 3.23 10^6/uL (4.20-5.40); RED CELL DISTRIBUTION WIDTH 15.6 % (12.0-15.0); WHITE BLOOD COUNT 6.5 x10^3/uL (4.8-10.8)
[2022-07-07 05:34] LABS: CALCIUM, IONIZED 1.16 mmol/L (1.15-1.33); VBG PH 7.423 (7.31-7.41)
[2022-07-07 05:49] LABS: ALBUMIN 2.9 g/dL (3.2-5.5); ALBUMIN/GLOBULIN RATIO 0.6 (1.0-2.2); BILIRUBIN,TOTAL 2.9 mg/dL (0.2-1.0); CALCIUM 8.8 mg/dL (8.5-10.3); CREATININE 0.4 mg/dL (0.4-1.0); MAGNESIUM 1.9 mg/dL (1.7-2.8); POTASSIUM 3.4 mmol/L (3.5-5.0); TOTAL PROTEIN 7.7 g/dL (6.7-8.2)
[2022-07-07] MEDS: SODIUM CHLORIDE FLUSH 0.9% 10 ML SYRINGE IVP SCH ×2 (06:51→08:36)
[2022-07-07] MEDS: PANTOPRAZOLE 40 MG TABLET PO SCH (06:51)
[2022-07-07] MEDS ORDERED: predniSONE 20 MG TABLET PO SCH (08:00)
[2022-07-07] MEDS: chlordiazePOXIDE 25 MG CAPSULE PO SCH (08:35)
[2022-07-07] MEDS: GABAPENTIN 100 MG CAPSULE PO SCH (08:35)
[2022-07-07] MEDS: PRENATAL VITAMIN TABLET PO SCH (08:35)
[2022-07-07] MEDS: THIAMINE 100 MG TABLET PO SCH (08:35)
[2022-07-07] MEDS: SACCHAROMYCES BOULARDII 250 MG CAPSULE PO SCH (08:35)
--- NOTE | 2022-07-07 13:57 | Discharge Plan ---
Discharge Plan Problem Reviewed?: Yes Disposition: Home, Self Care Condition: Fair Prescriptions: Cyanocobalamin/Folic Acid [L50-Kiocm Acid 2500-400 Mcg Tb] 1 each PO DAILY 30 Days #30 tab predniSONE [Deltasone] 3 tablet PO 0800 #20 tablet predniSONE [Deltasone] 40 mg PO DAILYWM 25 Days #25 tab chlordiazePOXIDE [Librium] 25 mg PO BID 3 Days #6 cap Gabapentin [Neurontin] 100 mg PO DAILY #30 cap Pantoprazole [Protonix] 40 mg PO QDAC #30 tab Thiamine [Vitamin B-1] 100 mg PO DAILY #30 tab Diet: Regular Driving Restrictions: Yes (Wait 3 days before driving (when off Librium)) Weight Bearing: Full Weight Instruction Topics: Alcoholism, Alcoholism Myths Facts, Alcoholism Get Help, Withdrawal Alcohol What Expect, Cirrhosis Liver Dc, Cirrhosis Plan of Treatment: Please follow up with PCP and [facility] for rehab. No Smoking: If you smoke, Please STOP! Call for help.
[2022-07-07 14:06] VITALS: BP 126/78
--- NOTE | 2022-07-07 14:19 | DISCHARGE SUMMARY ---
Discharge Summary Admit Date: 07/02/22 Discharge Date: 07/07/22 Discharging Provider: Dr Alex Mehta Code Status: Attempt Resuscitation Condition at Discharge: Fair Discharge Disposition: 01 Home, Self Care - DIAGNOSES Admission Diagnoses: Alcohol withdrawal Ascites due to alcoholic cirrhosis Pneumonia Hypokalemia Macrocytic anemia Discharge Diagnoses with Status of Each Condition: Alcohol withdrawal Resolved Alcoholic hepatitis-Improved Thrombocytopenia-Resolved Pneumonia-Resolved - HPI History of Present Illness: This is a 31-year-old female who drinks 2 bottles of wine a day. She has frequent visits to our emergency room with regards to alcohol abuse and all of his complications. First episode appears to be in 2017. Previous problems with her alcohol abuse if included alcoholic gastritis and pancreatitis in January 2020. Chronic findings of cirrhosis and ascites on CT. And multiple episodes o f intoxication followed by alcohol withdrawal. Her last episode of admission to our hospital was in July 2020. Her episode of intoxication and withdrawal was complicated by right upper quadrant pain. In the middle of getting evaluation for her right upper quadrant pain, a CODE BLUE was called. I verified that there was no pulse and CPR was instituted and she was intubated and full ACLS protocol instituted. She was felt to be in septic shock, gram-positive bacteremia. She was transferred to [facility]. Problems that were treated with her stay were multifactorial encephalopathy. She had quite a bit of delirium. She had anoxic brain injury, hepatic encephalopathy. Vocal cord paralysis from intubation. She was also treated for decompensated alcohol- related cirrhosis. She was discharged on rifaximin, lactulose, Lasix 80 mg daily and spironolactone 200 mg daily. She had dysphonia related to the encephalopathy and vocal cord dysfunction. A persistent leukocytosis with neutrophilia that was felt to be leukemoid reaction. Hematology was consulted and she had a bone marrow biopsy. Macrocytic anemia with folate deficiency was treated. Other problems were GERD, Burkholderia colonization, MSSA bacteremia that was treated for 2 weeks of Vanco and cefepime then Vanco and Zosyn and then sent Ancef. She had a MERRITT with no vegetations. Alcohol withdrawal seizure was treated with phenobarbital. Echocardiogram during that stay showed a small left ventricle, but normal thickness and ejection fraction of 80%. Normal diastolic dysfunction. Normal valvular anatomy and function. After her discharge from she was seen by her PCP Dr. oMntes later in 2021. He felt that she was somewhat dehydrated from her diuretic regimen and he cut it in half. Her problems in the clinic have been depression. She has been given medication. She has been waiting for her insurance card so she can go to outpatient treatment for alcohol use disorder. That was the last clinic visit. With this visit she was brought in by private vehicle for her mom. The patient told ER triage that she was in alcohol withdrawal. She is drinking 3 bottles of wine a day and 3 but has bombs a day. Her last drink was at 5:00 yesterday. She stopped drinking but has had vomiting. She is unsteady on her feet. She started coughing yesterday. She does not describe hemoptysis, fever, chills. She is just felt unsteady on her feet she feels like she cannot walk. Temperature 37.7, heart rate 129, blood pressure 123/80. Respirations 18 and she was 97% on room air. In spite of fluids, vitamins, the patient went on to have a temperature of 39.3. Heart rate of 122. Respirations 30 and 97% on room air. Her labs show hyponatremia of 130, hypokalemia of 2.8. BUN and creatinine are normal. Total bili is 4.9. AST 87. Lipase is 38. Alcohol level is less than 5. INR is 1.8. White cell count is 9. Hemoglobin 11.3. MCV 100.9. The ER provider feels that this is alcohol withdrawal and has asked the hospitalist service to admit the patient for this.The ER provider gave her IV fluids, and 1 dose of Ativan. No thiamine or folate. There is no mention on chest x-ray of pneumonia that I am seeing on chest x-ray - HOSPITAL COURSE Hospital Course: Yolanda spent 5 days in the hospital undergoing alcohol withdrawal in the typical fashion. She was started on a CIWA protocol utilizing as needed benzodiazepine, in particular lorazepam and chlordiazepoxide. On admission she had a chest x-ray with findings suggestive of community-acquired pneumonia and she was treated for this with ceftriaxone and azithromycin however she never developed any pulmonary symptoms of any kind. Her alcohol withdrawal initially worsened and at 1 point she spent the night in the ICU due to increased Ativan usage and was nearly started on a Precedex drip however an increase in as needed Ativan use was enough to allow the withdrawal to subside. She was also started on gabapentin and Librium was temporarily increased. By day 4 and 5 she was significantly improving and the Librium was decreased to 25 mg twice daily and the gabapentin was decreased from 100 mg 3 times daily to 100 mg twice daily. Eventually she was awake, alert, without tremors or any other symptoms of withdrawal. She was well oriented and very agreeable to complete alcohol ce ssation and seeking inpatient rehabilitation. With respect to her liver, her labs showed significant improvement. She was started on methylprednisolone and then transitioned to oral prednisone. Her thrombocytopenia resolved, and her LFTs improved. She will be discharged home to complete a 30-day treatment with oral prednisone with a taper at the end.She is advised to follow-up with her PCP and would benefit from a gastroenterology or hepatology referral. - ALLERGIES Allergies/Adverse Reactions: Allergies Allergy/AdvReac Type Severity Reaction Status Date / Time morphine Allergy Severe Anaphylaxis Verified 07/02/22 16:23 - Coded after receiving morphine. - MEDICATIONS Home Medications: Ambulatory Orders Medication Instructions Recorded Confirmed Cyanocobalamin/Folic Acid 1 each PO DAILY 30 Days #30 tab 07/07/22 [F84-Aooei Acid 2500-400 Mcg Tb] Gabapentin [Neurontin] 100 mg PO DAILY #30 cap 07/07/22 Pantoprazole [Protonix] 40 mg PO QDAC #30 tab 07/07/22 Thiamine [Vitamin B-1] 100 mg PO DAILY #30 tab 07/07/22 chlordiazePOXIDE [Librium] 25 mg PO BID 3 Days #6 cap 07/07/22 predniSONE [Deltasone] 3 tablet PO 0800 #20 tablet 07/07/22 predniSONE [Deltasone] 40 mg PO DAILYWM 25 Days #25 tab 07/07/22 - PHYSICAL EXAM AT DISCHARGE General Appearance: positive: No acute distress Eyes Bilateral: positive: Normal inspection ENT: positive: ENT inspection nml Respiratory: positive: Chest non-tender, No respiratory distress, Breath sounds nml Cardiovascular: positive: Regular rate & rhythm, No murmur, No gallop Abdomen: positive: Non-tender, No organomegaly, Nml bowel sounds, No distention Back: positive: Nml inspection Skin: positive: Color nml Extremities: positive: No pedal edema Neurologic/Psychiatric: positive: Oriented x3, CN's nml (2-12), Motor nml - LABS Result Diagrams: 07/07/22 04:38 04/17/23 04:38 - FOLLOW UP Follow Up: PCP - TIME SPENT Time Spent in Discharge (Minutes): 38
== END 2022-07-07 14:30 | disposition home or self-care (01) | DRG 896 ==
LOC: ED 12:32 → MS2 14:23 → ICU 07-04 08:17 → MS2 07-06 15:40
PROVIDERS: ADMIT Specialist; ATTEND Family Medicine Sports Medicine
DX: F10.139 Alcohol abuse with withdrawal, unspecified (principal); J18.9 Pneumonia, unspecified organism; K70.31 Alcoholic cirrhosis of liver with ascites; K70.11 Alcoholic hepatitis with ascites; E87.6 Hypokalemia; D53.9 Nutritional anemia, unspecified; D69.6 Thrombocytopenia, unspecified; Z87.891 Personal history of nicotine dependence; F41.9 Anxiety disorder, unspecified; S20.222A Contusion of left back wall of thorax, initial encounter; W18.30XA Fall on same level, unspecified, initial encounter
CPT/HCPCS: 36415; 71045; 76700; 80053; 80306; 80320; 81001; 81025; 82140; 82330; 82607; 82746; 83690; 83735; 84100; 84132; 85025; 85610; 87040; 87086; 87640; 93005; 96361; 96374; 96375; 99285; A9270; J2060; J7512; 81003; 82747; 85014

== ENCOUNTER 2023-01-29 07:37 | Outpatient (CLI) | payer MEDICAID ==
[2023-01-29 14:49] LABS: HCT - HEMATOCRIT 36.1 % (37.0-47.0); HGB - HEMOGLOBIN 11.2 g/dL (12.0-16.0); MEAN CORPUSCULAR HEMOGLOBIN 31.9 pg (27.0-31.0); MEAN CORPUSCULAR VOLUME 102.8 fL (81.0-99.0); MEAN PLATELET VOLUME 11.9 fL (7.9-10.8); RED BLOOD COUNT 3.51 10^6/uL (4.20-5.40); RED CELL DISTRIBUTION WIDTH 15.8 % (12.0-15.0); WHITE BLOOD COUNT 6.8 x10^3/uL (4.8-10.8)
[2023-01-29 14:54] LABS: ESTIMATED AVERAGE GLUCOSE 103 mg/dL (70-100); HEMOGLOBIN A1c% 5.2 % (4.27-6.07)
[2023-01-29 15:20] LABS: FERRITIN 89.4 ng/mL (11.0-306.8)
[2023-01-29 16:03] LABS: ALBUMIN 3.6 g/dL (3.2-5.5); ALBUMIN/GLOBULIN RATIO 0.8 (1.0-2.2); BILIRUBIN,TOTAL 1.4 mg/dL (0.2-1.0); CALCIUM 9.3 mg/dL (8.5-10.3); CREATININE 0.5 mg/dL (0.6-1.3); POTASSIUM 4.2 mmol/L (3.5-4.5); TOTAL PROTEIN 8.2 g/dL (6.4-8.9)
== END 2023-01-29 07:38 | disposition home or self-care (01) ==
LOC: LAB.S 07:37
PROVIDERS: ATTEND Family Medicine
DX: K70.30 Alcoholic cirrhosis of liver without ascites (principal)
CPT/HCPCS: 36415; 80053; 82728; 83036; 85025; 85027

== ENCOUNTER 2023-03-25 15:12 | Outpatient (CLI) | payer MEDICAID ==
--- NOTE | 2023-03-25 17:40 | Ultrasound Report ---
PROCEDURE: Abdomen Limited INDICATIONS: CIRRHOSIS TECHNIQUE: Real-time focused scanning was performed of the abdomen, with image documentation. COMPARISONS: None. FINDINGS: Liver: Liver is normal in size. Diffusely increased liver parenchymal echotexture is seen.. Gallbladder: No gallstones or gallbladder wall thickening. No pericholecystic fluid. No sonographic M urphy's sign.. Biliary ducts: Intrahepatic bile ducts are non-dilated. Extrahepatic bile duct caliber measures 4.4 mm. Normal is 6-7 mm or less in diameter, or 10 mm or less post-cholecystectomy. Pancreas: Visualized portions of the pancreas are sonographically normal. Right kidney: Normal in size and echotexture. Right kidney measures 13.6 cm long. No hydronephrosis or nephrolithiasis. No solid masses. No complex renal cystic lesions which require follow-up. Aorta: Visualized aorta is normal in caliber at less than 3 cm. IVC: Intrahepatic inferior vena cava is patent. Recanalized umbilical vein is noted. Miscellaneous: No free abdominal fluid. IMPRESSION: 1. Increased liver parenchymal echotexture and recanalized umbilical vein concerning for cirrhosis. N o discrete hepatic lesion is seen. 2. Normal-appearing gallbladder. No biliary ductal dilatation. 3. Normal appearing pancreas and right kidney. No peritoneal free fluid. Reviewed by: David Nolasco MD on 03/25/2023 5:38 PM PST Approved by: David Nolasco MD on 03/25/2023 5:38 PM PST Station ID: [id number]
== END 2023-03-25 15:13 | disposition home or self-care (01) ==
LOC: DI 15:12
PROVIDERS: ATTEND Family Medicine
DX: K70.30 Alcoholic cirrhosis of liver without ascites (principal)